=== PATIENT | female | born 1955 | race Caucasian/White ===

== ENCOUNTER 2021-01-26 07:31 | Inpatient (IN) | payer MEDICARE, SELFPAY ==
[2021-01-26] VITALS (17 sets, daily range): BP systolic 94–123; BP diastolic 64–83; PULSE 72–109; RESP 16–33; TEMP 36.6–38.5; O2SAT 91–98; BMI 34.3; BMI 36.7
--- NOTE | 2021-01-26 07:46 | W.ED.SOB ---
HPI - SOB/Dyspnea General: Chief Complaint: COVID symptoms Stated Complaint: LOW O2, LIMITED INTAKE:BROUGHT UP FROM INFUSION Time Seen by Provider: 01/26/21 07:32 History of Present Illness: HPI Narrative: Ms. Potts is a 64-year-old lady with significant past medical history of glaucoma, hypertension, COPD (possibly, patient vague but does report a smoking history) who presents emergency department from infusion clinic due to low oxygen saturation. She started having fairly typical Covid symptoms 5 or 6 days ago. She endorses generalized malaise, fevers, chills, aches, mild dizziness, shortness of breath, cough, and diarrhea which subsequently resolved as well as nausea. Symptoms began subacutely. Intensity of symptoms is moderate to severe. She tested positive for Covid at outside facility and was sent for infusion clinic however she was found to be hypoxemic. No history of home oxygen use. No other specific exacerbating or relieving factors identified. Review of Systems General: Reports: 10 or more systems reviewed and unremarkable except in HPI and below PFSH ED PFSH: Medical History (Updated 01/26/21 @ 13:37 by Abhijeet Qureshi MD) Hyperlipidemia Hypothyroidism Tobacco dependency Family History (Updated 01/26/21 @ 13:30 by Abhijeet Qureshi MD) Other Clotting disorder Social History (Updated 01/26/21 @ 13:30 by Abhijeet Qureshi MD) Smoking and tobacco status: current every day smoker Alcohol intake: never Physical Exam Narrative: EXAM NARRATIVE: GENERAL/CONSTITUTIONAL -mildly ill-appearing. No acute distress. Eyes - PERRL, no conjunctival injection ENMT - Atraumatic external nose and ears. Moist mucous membranes NECK - supple. trachea midline CARDIOVASCULAR - regular rate and rhythm. Peripheral pulses 2+ and equal RESPIRATORY -coarse to auscultation bilaterally. No retractions or accessory muscle use. ABDOMEN/GI - Nontender, Nondistended. No tenderness to percussion or evidence of peritonitis MSK - Extremities without obvious deformity or tenderness to palpation SKIN - Warm, Dry NEURO - alert and appropriately oriented. strength and sensation intact. Moves all extremities equally. PSYCH - Appropriate mood and affect Course ED course: - Patient was seen and evaluated by me at bedside - Patient placed on cardiac monitors, IV access obtained - Initial evaluation notable for mildly ill appearance, no acute distress. Decreased breath sounds and supplemental oxygen in place. - Labs notable for leukocytosis, mild thrombocytopenia. Metabolic panel notable for hypokalemia. CRP markedly elevated with markedly elevated procalcitonin. ABG normal. delta troponin negative -Patient describes intermittent neurologic symptoms and therefore head CT ordered. Head CT negative for acute intracranial hemorrhage or mass. Chest x-ray somewhat unimpressive given patient's clinical picture and laboratory findings. Therefore, CTA ordered. Imaging notable for likely bacterial pneumonia as well as pulmonary emboli. - At time of CT read patient had definitive source of infection on top of SIRS criteria. Antibiotics and fluids given. All fluid calculations based on ideal body weight. - Upon serial reexamination after treatment the patient was mildly improved - Based on patient history, evaluation, labs, and imaging as interpreted the most likely cause of the patient's condition is pneumonia with hypoxemia, Covid, and pulmonary emboli - The results of ED evaluation were discussed with the patient including plan for admission due to requirement for level of care not available if discharged to prevent significant worsening/deterioration. -Hospitalist service contacted and agreed to meet the patient. Lovenox ordered. - Patient was admitted without further deterioration or significant events. Vital Signs: Vital signs: Vital Signs Temperature 97.5 F L 01/27/21 15:22 Pulse Rate 68 01/27/21 15:33 Respiratory Rate 18 01/27/21 15:30 Blood Pressure 111/68 01/27/21 15:22 Pulse Oximetry 97 01/27/21 15:30 MDM - SOB/Dyspnea Medical Records: Attestation: I reviewed the patient's medical records. Lab Data: Attestation: I reviewed the patient's lab results. Labs: Lab Results 01/26/21 01/26/21 01/26/21 Range/Units 07:55 07:55 07:55 WBC 13.2 H (4.0-10.0) 10^3/ uL RBC 4.61 (4.1-5.3) 10^6/u L Hgb 14.1 (11.5-15.3) g/dL Hct 41.5 (37.0-47.0) % MCV 90.0 (81-99) fl MCH 30.6 (28.0-34.0) pg MCHC 34.0 (30.0-36.0) g/dL RDW 13.6 (12.1-15.1) % Plt Count 123 L (130-400) 10^3/c mm MPV 10.8 H (7.4-10.4) fL Neut % (Auto) 90.3 % Lymph % (Auto) 3.9 % Linn % (Auto) 4.2 % Eos % (Auto) 0.0 % Baso % (Auto) 0.2 % Neut # (Auto) 11.95 H (1.8-7.7) 10^3/u L Lymph # (Auto) 0.5 L (0.8-4.8) 10^3/u L Linn # (Auto) 0.6 (0.2-0.9) 10^3/u L Eos # (Auto) 0.0 (0.0-0.8) 10^3/u L Baso # (Auto) 0.0 (0.0-0.1) 10^3/u L Nucleated RBC % (a uto) 0 % Nucleated RBCs # 0.0 /100WBC Specimen Type Sample Site ABG pH (7.35-7.45) ABG pCO2 (35-45) mmHg ABG pO2 (80.0-100.0) mmH g ABG HCO3 (22-26) mmol/L ABG Base Excess (-2.0-2.0) mmol/ L Duran Test Hematocrit (37-47) % O2 Delivery Device O2 Liters/Min % FiO2 % Correspondence Representative ID Sodium 136 (136-145) mmol/L Potassium 3.2 L (3.5-5.1) mmol/L Chloride 100 (98-107) mmol/L Carbon Dioxide 20 L (22-29) mmol/L Anion Gap 19.2 H (5-19) BUN 24 H (8-23) mg/dL Creatinine 1.0 H (0.5-0.9) mg/dL GFR Calculation 55.6 L (90-130) mL/min Glucose 100 (65-115) mg/dL Calculated Osmolal ity 286 (285-295) mOsm/k g Lactic Acid 1.1 (0.5-2.2) mmol/L Calcium 7.7 L (8.5-10.5) mg/dL Magnesium (1.7-2.3) mg/dL Total Bilirubin 0.4 (0.15-1.2) mg/dL AST 30 (0-32) U/L ALT 29 (0-33) U/L Alkaline Phosphata se 59 (35-105) IU/L Troponin T Baselin e (0-10) ng/L Troponin T 120 Min [place] (0-10) ng/L Delta Troponin T (0-10) ABS# C-Reactive Protein 341.0 H (0.0-4.9) mg/L NT-Pro-B Natriuret Pep 169 H (0-125) pg/mL Total Protein 6.4 L (6.6-8.7) g/dL Albumin 3.5 (3.5-5.2) g/dL Globulin 2.9 (1.3-4.6) g/dL Procalcitonin 62.45 H (0-0.5) ng/mL Urine Color (Yellow) Urine Appearance (CLEAR) Urine pH (5-7) Ur Specific Gravit y (1.005-1.030) Urine Protein (Negative) Urine Glucose (UA) (Normal) Urine Ketones (Negative) Urine Blood (Negative) Urine Nitrate (Negative) Urine Bilirubin (Negative) Urine Urobilinogen (Negative) mg/dL Ur Leukocyte Delphine ase (Negative) Urine RBC (0-2) /hpf Urine WBC (0-5) /hpf Ur Squamous Epith Cells (0-5) /hpf Amorphous Sediment Urine Bacteria (NONE) /hpf 01/26/21 01/26/21 01/26/21 Range/Units 07:55 07:55 09:12 WBC (4.0-10.0) 10^3/ uL RBC (4.1-5.3) 10^6/u L Hgb (11.5-15.3) g/dL Hct (37.0-47.0) % MCV (81-99) fl MCH (28.0-34.0) pg MCHC (30.0-36.0) g/dL RDW (12.1-15.1) % Plt Count (130-400) 10^3/c mm MPV (7.4-10.4) fL Neut % (Auto) % Lymph % (Auto) % Linn % (Auto) % Eos % (Auto) % Baso % (Auto) % Neut # (Auto) (1.8-7.7) 10^3/u L Lymph # (Auto) (0.8-4.8) 10^3/u L Linn # (Auto) (0.2-0.9) 10^3/u L Eos # (Auto) (0.0-0.8) 10^3/u L Baso # (Auto) (0.0-0.1) 10^3/u L Nucleated RBC % (a uto) % Nucleated RBCs # /100WBC Specimen Type Arterial Sample Site Radial, left ABG pH 7.43 (7.35-7.45) ABG pCO2 34.7 L (35-45) mmHg ABG pO2 75.4 L (80.0-100.0) mmH g ABG HCO3 22.8 (22-26) mmol/L ABG Base Excess -1.1 (-2.0-2.0) mmol/ L Duran Test Pos Hematocrit 41.4 (37-47) % O2 Delivery Device Nc O2 Liters/Min 3.0 % FiO2 32.0 % Correspondence Representative ID Cak Sodium (136-145) mmol/L Potassium (3.5-5.1) mmol/L Chloride (98-107) mmol/L Carbon Dioxide (22-29) mmol/L Anion Gap (5-19) BUN (8-23) mg/dL Creatinine (0.5-0.9) mg/dL GFR Calculation (90-130) mL/min Glucose (65-115) mg/dL Calculated Osmolal ity (285-295) mOsm/k g Lactic Acid (0.5-2.2) mmol/L Calcium (8.5-10.5) mg/dL Magnesium 2.1 (1.7-2.3) mg/dL Total Bilirubin (0.15-1.2) mg/dL AST (0-32) U/L ALT (0-33) U/L Alkaline Phosphata se (35-105) IU/L Troponin T Baselin e 13 H (0-10) ng/L Troponin T 120 Min [place] (0-10) ng/L Delta Troponin T (0-10) ABS# C-Reactive Protein (0.0-4.9) mg/L NT-Pro-B Natriuret Pep (0-125) pg/mL Total Protein (6.6-8.7) g/dL Albumin (3.5-5.2) g/dL Globulin (1.3-4.6) g/dL Procalcitonin (0-0.5) ng/mL Urine Color (Yellow) Urine Appearance (CLEAR) Urine pH (5-7) Ur Specific Gravit y (1.005-1.030) Urine Protein (Negative) Urine Glucose (UA) (Normal) Urine Ketones (Negative) Urine Blood (Negative) Urine Nitrate (Negative) Urine Bilirubin (Negative) Urine Urobilinogen (Negative) mg/dL Ur Leukocyte Delphine ase (Negative) Urine RBC (0-2) /hpf Urine WBC (0-5) /hpf Ur Squamous Epith Cells (0-5) /hpf Amorphous Sediment Urine Bacteria (NONE) /hpf 01/26/21 01/26/21 Range/Units 09:26 10:00 WBC (4.0-10.0) 10^3/ uL RBC (4.1-5.3) 10^6/u L Hgb (11.5-15.3) g/dL Hct (37.0-47.0) % MCV (81-99) fl MCH (28.0-34.0) pg MCHC (30.0-36.0) g/dL RDW (12.1-15.1) % Plt Count (130-400) 10^3/c mm MPV (7.4-10.4) fL Neut % (Auto) % Lymph % (Auto) % Linn % (Auto) % Eos % (Auto) % Baso % (Auto) % Neut # (Auto) (1.8-7.7) 10^3/u L Lymph # (Auto) (0.8-4.8) 10^3/u L Linn # (Auto) (0.2-0.9) 10^3/u L Eos # (Auto) (0.0-0.8) 10^3/u L Baso # (Auto) (0.0-0.1) 10^3/u L Nucleated RBC % (a uto) % Nucleated RBCs # /100WBC Specimen Type Sample Site ABG pH (7.35-7.45) ABG pCO2 (35-45) mmHg ABG pO2 (80.0-100.0) mmH g ABG HCO3 (22-26) mmol/L ABG Base Excess (-2.0-2.0) mmol/ L Duran Test Hematocrit (37-47) % O2 Delivery Device O2 Liters/Min % FiO2 % Correspondence Representative ID Sodium (136-145) mmol/L Potassium (3.5-5.1) mmol/L Chloride (98-107) mmol/L Carbon Dioxide (22-29) mmol/L Anion Gap (5-19) BUN (8-23) mg/dL Creatinine (0.5-0.9) mg/dL GFR Calculation (90-130) mL/min Glucose (65-115) mg/dL Calculated Osmolal ity (285-295) mOsm/k g Lactic Acid (0.5-2.2) mmol/L Calcium (8.5-10.5) mg/dL Magnesium (1.7-2.3) mg/dL Total Bilirubin (0.15-1.2) mg/dL AST (0-32) U/L ALT (0-33) U/L Alkaline Phosphata se (35-105) IU/L Troponin T Baselin e (0-10) ng/L Troponin T 120 Min [place] 10.02 H (0-10) ng/L Delta Troponin T -2.98 L (0-10) ABS# C-Reactive Protein (0.0-4.9) mg/L NT-Pro-B Natriuret Pep (0-125) pg/mL Total Protein (6.6-8.7) g/dL Albumin (3.5-5.2) g/dL Globulin (1.3-4.6) g/dL Procalcitonin (0-0.5) ng/mL Urine Color Yellow (Yellow) Urine Appearance Clear (CLEAR) Urine pH 5 (5-7) Ur Specific Gravit y 1.020 (1.005-1.030) Urine Protein 1+ H (Negative) Urine Glucose (UA) Norm (Normal) Urine Ketones Negative (Negative) Urine Blood 3+ H (Negative) Urine Nitrate Negative (Negative) Urine Bilirubin 1+ H (Negative) Urine Urobilinogen Neg (Negative) mg/dL Ur Leukocyte Delphine ase Negative (Negative) Urine RBC 25-40 H (0-2) /hpf Urine WBC 0-4 H (0-5) /hpf Ur Squamous Epith Cells 0-4 H (0-5) /hpf Amorphous Sediment Not Reportable Urine Bacteria 2+ H (NONE) /hpf EKG Data^: EKG 1: Attestation: I personally reviewed and interpreted this EKG as follows: EKG Interpretation Date: 01/26/21 EKG interpretation time: 08:15 Interpretation: Twelve-lead EKG shows a regular sinus rhythm at a rate of 109. SD interval 148, QRS duration 97, QTc 4 6. Normal axis. Interpretation: Sinus tachycardia, nonspecific ST segment abnormalities EKG 2: Attestation: I personally reviewed and interpreted this EKG as follows: EKG Interpretation Date: 01/26/21 EKG interpretation time: 10:08 Prior EKG tracings: available for review Interpretation: Twelve-lead EKG shows a regular sinus rhythm at a rate of 87. SD interval 149, QRS duration 100, QTc 410. Normal axis. Interpretation: Sinus rhythm. Similar to prior. Discharge Plan Discharge Patient Disposition: Admitted As Inpatient Admit Provider: Abhijeet Qureshi Coding Level of Care Code ED Director Of Leadership Development for Christie Burton
--- NOTE | 2021-01-26 07:49 | XR_ITS ---
WS: [id number] XR chest 1V portable [id number] REASON FOR EXAM: hypoxemia FINDINGS: Mild tortuosity thoracic aorta. Normal heart size. Patchy infiltrative change in the left lung just inferior and lateral to the aortic arch. The right hilar region appears enlarged and of increased density and has a very nodular appearance. Bony thorax is intact. XR/XR chest 1V portable [id number] IMPRESSION: Infiltrate left lung, unknown chronicity possibly an acute pneumonitis. Very unusual appearance of the right hilar region, etiology is unclear. In this single AP view this could represent a pulmonary parenchymal abnormality overly ing the hilar region. This patient may benefit from a CT scan of the chest for better evaluation of t he pulmonary abnormalities that are seen.
--- NOTE | 2021-01-26 07:50 | ECG_ITS ---
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 Measurements Intervals [place] Rate: 109 P: 61 CO: 148 QRS: 68 QRSD: 97 T: -17 QT: 301 QTc: 406 Interpretive Statements SINUS TACHYCARDIA NONSPECIFIC ST & T-WAVE ABNORMALITY Compared to ECG 10/06/2014 11:51:25 Sinus rhythm no longer present T-wave abnormality still present Electronically Signed On 01-27-2021 18:54:46 CDT by Kassandra South M.D. [id number]
[2021-01-26 08:05] LABS: Basophils % 0.2 %; Hematocrit 41.5 % (37.0-47.0); Hemoglobin 14.1 g/dL (11.5-15.3); Lymphocytes # 0.5 10^3/uL (0.8-4.8); Lymphocytes % 3.9 %; Mean Corpuscular Hemoglobin 30.6 pg (28.0-34.0); Mean Platelet Volume 10.8 fL (7.4-10.4); Monocytes # 0.6 10^3/uL (0.2-0.9); Monocytes % 4.2 %; Neutrophils # 11.95 10^3/uL (1.8-7.7); Neutrophils % 90.3 %; Nucleated Red Blood Cells % 0 %; Platelet Count 123 10^3/cmm (130-400); Red Blood Count 4.61 10^6/uL (4.1-5.3); Red Cell Distribution Width 13.6 % (12.1-15.1); White Blood Count 13.2 10^3/uL (4.0-10.0)
[2021-01-26 08:34] LABS: Lactic Sepsis W/Reflex 1.1 mmol/L (0.5-2.2)
--- NOTE | 2021-01-26 08:36 | CT_ITS ---
WS: [id number] CT HEAD NONCONTRAST HISTORY: AMS, dizziness TECHNIQUE: Contiguous axial imaging performed through the brain in 2.5 mm imaging. Bone and soft tiss ue windows. Sagittal and coronal reformats reviewed. All CT scans at [facility] [place] use at least one of these dose optimization techniques: automated exposure control; mA and/or kV adjustment per pa tient size (includes targeted exams where dose is matched to clinical indication); or iterative recon struction. DLP: 841.49 mGy.cm COMPARISON: None available. No acute intracranial hemorrhage, midline shift or mass effect. No atrophy or prior infarcts or herniation. Ventricles: Normal size with no hydrocephalus. Moderate atherosclerotic plaque within the intracranial carotid arteries. Paranasal sinuses: As visualized are clear. Mastoid air cells: Well pneumatized. Calvarium and scalp: Skull is intact with no soft tissue edema or swelling. CT/CT head wo con* [id number] IMPRESSION: Negative head CT.
[2021-01-26 08:37] LABS: Troponin(5th) Baseline 13 ng/L (0-10)
[2021-01-26 08:45] LABS: Slide Review Slide Review Perform
[2021-01-26 08:46] LABS: NT Pro B Type Natriuretic Pept 169 pg/mL (0-125); Procalcitonin 62.45 ng/mL (0-0.5)
--- NOTE | 2021-01-26 08:48 | CT_ITS ---
WS: [id number] CTA CHEST WITH CT ABDOMEN AND PELVIS. HISTORY: Epigastric pain and short of breath. Covid positive. TECHNIQUE: CT angiogram is performed through the chest. Additional imaging is performed through the a bdomen and pelvis with IV contrast. Sagittal and coronal reformats have been submitted. MIP imaging also reviewed. All CT scans at [facility] use at least one of these dose optimization techniqu es: automated exposure control; mA and/or kV adjustment per patient size (includes targeted exams whe re dose is matched to clinical indication); or iterative reconstruction. Contrast: Visipaque 95 cc IV. DLP: 1772.65 mGy.cm COMPARISON: None. Chest CTA: Adequate opacification of the central pulmonary arteries. Centrally no pulmonary embolism. There are filling defects beginning in the subsegmental branches of the RIGHT lower lobe pulmonary a rtery. Incomplete filling defect in LEFT lower lobe pulmonary artery. These are nonocclusive defects. No RIGHT heart strain. Normal size RIGHT heart. No LEFT atrial appendage thrombus. Normal-sized thor acic aorta. Bilateral areas of dense consolidation in the hilar regions. Consolidations are in the me dial upper lung montague bilaterally extending over the hilar regions. Crease opacification at the marcos r regions and extending into the azygos esophageal recess. Mild interstitial thickening in the periph nuno of the lower lung montague. No pneumothorax. There are numerous small mediastinal and hilar lymph n odes. No enlarged lymph nodes. Probably reactive adenopathy. Abdomen CT: Mildly enlarged liver with no bile duct dilatation. Normal portal vein. Gallbladder has b een removed. Spleen is normal size. Normal pancreas. No adrenal mass. Mild atherosclerosis aorta. 1.7 cm cyst associated with the central RIGHT kidney. No renal obstruction. No adenopathy or ascites. No GI tract obstruction. Numerous diverticula in the descending and sigmoid colon. The appendix is not identified and may been removed. Pelvic CT: No free fluid in the pelvis. Prior hysterectomy. CT/CT angio chest w abd pel w con IMPRESSION: 1. Nonocclusive bilateral, subsegmental pulmonary emboli lung montague. 2. Bilateral multi lobar pneumonia. Atypical distribution for Covid. The opaci fications are in the central lungs and not in the periphery is typically seen w ith Covid. Recommend follow-up until resolution. 3. Sigmoid diverticulosis but no acute diverticulitis. 4. Gallbladder is not identified. Suspect cholecystectomy. Appendix is not benita ntified either. No history of appendectomy was provided. Notified Juan Rae MD at 01/26/2021 10:46 AM. Not available.
[2021-01-26] MEDS: lactated ringers 500 ML 999 ML IV (08:49)
[2021-01-26] MEDS: ondansetron 2 mg/ML SDV 2 mL 4 MG IVP (08:51)
[2021-01-26] MEDS: acetaminophen 325 mg Tablet 650 MG PO ×2 (08:51→15:52)
[2021-01-26] MEDS: piperacillin-tazobactam 4.5 GM in sodium chloride 0.9% (plus) 50 ML IV (08:54)
[2021-01-26 08:58] LABS: Alanine Aminotransferase 29 U/L (0-33); Albumin Level 3.5 g/dL (3.5-5.2); Alkaline Phosphatase 59 IU/L (35-105); Anion Gap 19.2 (5-19); Aspartate Amino Transferase 30 U/L (0-32); Blood Urea Nitrogen 24 mg/dL (8-23); Calcium 7.7 mg/dL (8.5-10.5); Carbon Dioxide 20 mmol/L (22-29); Chloride 100 mmol/L (98-107); Globulin 2.9 g/dL (1.3-4.6); Glomerular Filtration Rate 55.6 mL/min (90-130); Glucose 100 mg/dL (65-115); Osmolality Calculated 286 mOsm/kg (285-295); Potassium 3.2 mmol/L (3.5-5.1); Sodium 136 mmol/L (136-145); Total Bilirubin 0.4 mg/dL (0.15-1.2); Total Protein 6.4 g/dL (6.6-8.7)
[2021-01-26 09:23] LABS: ABG PCO2 34.7 mmHg (35-45); ABG PH Result 7.43 (7.35-7.45); Arterial Blood Gas Hematocrit 41.4 % (37-47); Base Excess ABG -1.1 mmol/L (-2.0-2.0); Blood Gas Allen Test Pos; Blood Gas Operator Identificat CAK; Blood Gas Sample Site Radial, left; Blood Gas Sample Type Arterial; HCO3 ABG 22.8 mmol/L (22-26); Oxygen Device NC; PO2 ABG 75.4 mmHg (80.0-100.0)
[2021-01-26] MEDS: potassium chloride ER 20 mEq Tablet 40 MEQ PO (09:35)
--- NOTE | 2021-01-26 09:50 | ECG_ITS ---
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 Measurements Intervals [place] Rate: 87 P: 60 IL: 149 QRS: 67 QRSD: 100 T: 39 QT: 340 QTc: 410 Interpretive Statements SINUS RHYTHM NONSPECIFIC T-WAVE ABNORMALITY Compared to ECG 01/26/2021 08:11:11 Sinus tachycardia no longer present T-wave abnormality still present Electronically Signed On 01-27-2021 19:21:19 CDT by Kassandra South M.D. [id number]
[2021-01-26 10:11] LABS: Add Urine Microscopic? YES; Bilirubin Urine 1+ (Negative); Blood Urine 3+ (Negative); Glucose Urine UA Norm (Normal); Ketones Urine Negative (Negative); Leukocyte Esterase Urine Negative (Negative); Nitrate Urine Negative (Negative); Protein Urine 1+ (Negative); Urine Appearance Clear (CLEAR); Urine Color Yellow (Yellow); Urobilinogen Urine Neg (Negative); pH Urine 5 (5-7)
[2021-01-26 10:12] LABS: Add Urine Culture? Yes; Bacteria Urine 2+ /hpf; RBC Urine 25-40 /hpf (0-2); Squamous Epithelial Cell Urine 0-4 /hpf (0-5); WBC Urine 0-4 /hpf (0-5)
[2021-01-26] MEDS: iodixanol 320 mg/mL 100mL Btl IV (10:27)
[2021-01-26 10:40] LABS: Troponin 5 2HR 10.02 ng/L (0-10)
[2021-01-26 10:48] LABS: Troponin 5 2HR Delta -2.98 ABS# (0-10)
[2021-01-26] MEDS: ipratropium-albuterol 3 mL Neb INHALATION (11:26)
[2021-01-26] MEDS: enoxaparin 100 mg/mL Syringe 90 MG SUBCUT (11:33)
--- NOTE | 2021-01-26 13:24 | P.HP_ITS ---
Providers/Chief Complaint Admitting Physician: Abhijeet Qureshi MD Primary Care Provider: Danielle Jacome MD Chief Complaint: LOW O2, LIMITED INTAKE:BROUGHT UP FROM INFUSION History of Present Illness Angely Potts is a 65 year old female who presented with fever, cough, nausea and diarrhea for the last week. She presented to her primary care provider's office and had a positive Covid test which I confirmed was done on January 24. She states the diarrhea has gotten better but she just cannot breathe. She feels like she needs to cough something up but cannot. She has been wheezing. She has not been eating or drinking as well. I believe she was sent for monoclonal infus ion, but did not receive this secondary hypoxia and was sent to the emergency department. She has also had some pain when she takes a deep breath on the left side. She has not had hemoptysis. In the emergency department she was placed on oxygen, hydrated, and given Zosyn and vancomycin. Multiple imaging studies were performed. Review of Systems General: Reports: 10 or more systems reviewed and unremarkable except in HPI and below Const: Reports: fever(s), chills and malaise Eyes: Denies: change in vision ENMT: Denies: throat pain Card: Reports: chest pain Resp: Reports: dyspnea, non-productive cough and wheezing GI: Reports: abdominal pain; Denies: nausea : Denies: flank pain Musc: Denies: neck pain Skin/Breast: Denies: rash Neuro: Denies: headache(s) Psych: Denies: anxiety or depression Endo: Denies: polyuria Valdo/Lymph: Denies: easy bruising All/Imm: Denies: urticaria Medications/Allergies Home Medications Medication Instructions Recorded Confirmed Last Taken Type azithromycin 250 mg PO DAILY 01/26/21 01/26/21 01/25/21 History budesonide See Rx Instructions .ROUTE .COMPLEX 01/26/21 01/26/21 01/25/21 History levothyroxine 75 mcg PO DAILY 01/26/21 01/26/21 01/25/21 History simvastatin 40 mg PO DAILY 01/26/21 01/26/21 01/25/21 History timolol maleate See Rx Instructions .ROUTE .COMPLEX 01/26/21 01/26/21 01/25/21 History Allergies Allergy/AdvReac Type Severity Reaction Status Date / Time ibuprofen Allergy ADR-Vomitin Verified 01/26/21 07:51 g PFSH Acute PFSH: Medical History (Updated 01/26/21 @ 13:37 by Abhijeet Qureshi MD) Hyperlipidemia Hypothyroidism Tobacco dependency Family History (Updated 01/26/21 @ 13:30 by Abhijeet Qureshi MD) Other Clotting disorder Social History (Updated 01/26/21 @ 13:30 by Abhijeet Qureshi MD) Smoking and tobacco status: current every day smoker Alcohol intake: never Supplemental PFSH Information: Denies any significant surgical history. Vitals/I&O/Wt Last Vital Signs Temp 98.4 F 01/26/21 13:08 Pulse 85 01/26/21 13:08 Resp 19 H 01/26/21 13:08 BP 102/66 01/26/21 13:08 Pulse Ox 98 01/26/21 13:08 01/25/21 01/26/21 01/26/21 22:59 06:59 14:59 Intake Total 1691 / 1691 Balance 1691 / 1691 Weight last 48 hrs Weight 97.069 kg Weight 90.718 kg Physical Exam Narrative: EXAM NARRATIVE: General exam tired appearing female HEENT: Pupils equally round. Oropharynx clear. Neck is supple no lymphadenopathy thyromegaly Cardiovascular regular rate and rhythm without murmur Lungs bilateral expiratory wheezes, rhonchi are noted bilaterally Abdomen is soft with positive bowel sounds, no obvious organomegaly. No pain to palpation. exam is deferred Extremities no cyanosis clubbing or edema Skin no rash Neuro no obvious focal deficits. Data : 01/26/21 07:55 01/26/21 07:55 Micro: Microbiology 01/26/21 10:00 Blood Culture - Preliminary Blood SPECIMEN COLLECTED 01/26/21 09:55 Blood Culture - Preliminary Blood SPECIMEN COLLECTED Other data: ABG demonstrates a pH of 7.43, PCO2 of 35, PO2 of 75 Troponin is 13 with repeat of 10 LFTs largely within normal limits Procalcitonin elevated at 62 Urinalysis with 25-40 reds 0-4 whites Chest abdomen pelvis CT demonstrates nonocclusive bilateral pulmonary emboli, bilateral multilobar pneumonia, diverticulosis. Head CT no acute findings Plain chest x-ray demonstrated infiltrate left lung EKG demonstrates sinus rhythm, normal axis, no acute changes. A&P Assessment and plan (1) COVID-19: Tested + January 24. From patient history symptoms were going on a week to a week and a half. Initiate remdesivir Initiate dexamethasone Not candidate for Actemra/ baricitinib secondary to superimposed bacterial infection Isolation precautions Status: Acute (2) Pneumonia: Likely superimposed bacterial infection Atypical appearance of infiltrate on chest x-ray for Covid. Vancomycin and Zosyn initiated through the emergency department Sputum culture MRSA PCR De-escalate antibiotics as soon as possible Wean oxygen as tolerated Pulmonary toilet with Combivent, Advair Incentive spirometry Status: Acute (3) Pulmonary emboli: Full dose anticoagulation with Lovenox Transition to p.o. anticoagulant, if clinical improvement occurs and other procedures unlikely Status: Acute (4) Hypokalemia: Potassium supplementation occurred in the ER Check magnesium level Status: Acute Additional A&P Information Full code Full dose Lovenox will suffice for DVT prophylaxis. Pepcid for GI prophylaxis Attestations Medical Necessity Statement*: Will need greater than 2 midnight stay secondary to COVID-19 pneumonia with hypoxia Time Spent in Patient Care: Greater than 35 minutes Coding Level of Care Code Acute Broadcast Program Director for Christie Burton Diagnoses COVID-19 U07.1 Pneumonia J18.9 Pulmonary emboli I26.99 Hypokalemia E87.6
[2021-01-26 14:06] LABS: Magnesium 2.1 mg/dL (1.7-2.3)
[2021-01-26] MEDS: dexamethasone 10 mg/mL INJ 6 MG IVP (14:45)
[2021-01-26] MEDS: remdesivir 200 MG in sodium chloride 0.9% (100 ml) 100 ML 100 MG IV (14:45)
[2021-01-26] MEDS: piperacillin-tazobactam 3.375 GM in sodium chloride 0.9% (plus) 50 ML IV ×2 (15:51→22:48)
[2021-01-26] MEDS: famotidine 20 mg Tablet PO (18:27)
[2021-01-26] MEDS: enoxaparin 100 mg/mL Syringe SUBCUT (22:53)
[2021-01-27] VITALS (14 sets, daily range): BP systolic 105–119; BP diastolic 63–79; PULSE 61–82; RESP 17–20; TEMP 36.4–36.8; O2SAT 91–97
[2021-01-27] MEDS: vancomycin 1,500 MG/300 ML PIGGYBACK 200 MG IV (00:07)
[2021-01-27 02:56] LABS: Basophils % 0.2 %; Hematocrit 37.3 % (37.0-47.0); Hemoglobin 11.8 g/dL (11.5-15.3); Lymphocytes # 0.5 10^3/uL (0.8-4.8); Mean Corpuscular HGB Conc 31.6 g/dL (30.0-36.0); Mean Corpuscular Volume 94.9 fl (81-99); Mean Platelet Volume 11.4 fL (7.4-10.4); Monocytes # 0.6 10^3/uL (0.2-0.9); Neutrophils # 8.01 10^3/uL (1.8-7.7); Nucleated Red Blood Cells % 0 %; Platelet Count 130 10^3/cmm (130-400); Red Blood Count 3.93 10^6/uL (4.1-5.3); Red Cell Distribution Width 13.9 % (12.1-15.1); White Blood Count 9.1 10^3/uL (4.0-10.0)
[2021-01-27 03:19] LABS: Slide Review Slide Review Perform
[2021-01-27 03:23] LABS: Alanine Aminotransferase 21 U/L (0-33); Albumin Level 2.6 g/dL (3.5-5.2); Alkaline Phosphatase 48 IU/L (35-105); Aspartate Amino Transferase 15 U/L (0-32); Blood Urea Nitrogen 20 mg/dL (8-23); Calcium 7.2 mg/dL (8.5-10.5); Carbon Dioxide 23 mmol/L (22-29); Chloride 104 mmol/L (98-107); Globulin 2.7 g/dL (1.3-4.6); Glucose 110 mg/dL (65-115); Osmolality Calculated 287 mOsm/kg (285-295); Sodium 137 mmol/L (136-145); Thyroid Stimulating Hormone 1.06 uIU/mL (0.27-4.20); Total Bilirubin 0.2 mg/dL (0.15-1.2); Total Protein 5.3 g/dL (6.6-8.7)
[2021-01-27] MEDS: piperacillin-tazobactam 3.375 GM in sodium chloride 0.9% (plus) 50 ML IV ×3 (06:02→22:17)
--- NOTE | 2021-01-27 06:32 | PC.NURSE ---
Patient rested throughout night. No new events or changes. VSS, remains on nasal cannula. Spoke with daughter at beginning of shift with update. No needs at this time. Report and handoff to oncoming nurse at shift change.
[2021-01-27] MEDS: famotidine 20 mg Tablet PO ×2 (08:54→17:26)
[2021-01-27] MEDS: benzonatate 100 mg Capsule PO ×2 (08:54→14:18)
[2021-01-27] MEDS: enoxaparin 100 mg/mL Syringe SUBCUT ×2 (12:16→22:17)
--- NOTE | 2021-01-27 12:21 | P.PN_ITS ---
Subjective Subjective: Interval history: Angely reports she feels about the same today. Still coughing a lot. Medications: Reviewed: Yes Vitals/I&O/Wt Last Vital Signs Temp 97.9 F 01/27/21 11:05 Pulse 73 01/27/21 11:05 Resp 18 01/27/21 11:05 BP 110/63 01/27/21 11:05 Pulse Ox 91 01/27/21 11:05 01/26/21 01/27/21 01/27/21 22:59 06:59 14:59 Intake Total 390 / 2581 590 / 3171 170 / 170 Balance 390 / 2581 590 / 3171 170 / 170 Weight last 48 hrs Weight 97.069 kg Weight 90.718 kg Physical Exam Narrative: EXAM NARRATIVE: T-max 101.3 general exam no distress Neck is supple no lymphadenopathy thyromegaly Cardiovascular regular rate and rhythm without murmur Lungs bilateral expiratory wheezes, rhonchi are noted bilaterally Abdomen is soft with positive bowel sounds, no obvious organomegaly. No pain to palpation. Extremities no cyanosis clubbing or edema Data : 01/27/21 02:26 01/27/21 02:26 Micro: Microbiology 01/26/21 15:58 MRSA Culture - Final Nose 01/26/21 09:55 Blood Culture - Preliminary Blood NEGATIVE TO DATE 01/26/21 10:00 Blood Culture - Preliminary Blood NEGATIVE TO DATE 01/26/21 09:26 Urine Culture - Preliminary Urine,Clean Catch Gram Negative Rods A&P Assessment and plan (1) COVID-19: Tested + January 24. From patient history symptoms were going on a week to a week and a half. Continue remdesivir and dexamethasone Not candidate for Actemra/ baricitinib secondary to superimposed bacterial infection Isolation precautions Status: Acute (2) Pneumonia: Likely superimposed bacterial infection Atypical appearance of infiltrate on chest x-ray for Covid. Procalcitonin is positive Vancomycin and Zosyn initiated through the emergency department Sputum culture pending MRSA negative. Discontinue vancomycin. De-escalate antibiotics as soon as possible Wean oxygen as tolerated Pulmonary toilet with Combivent, Advair Incentive spirometry Status: Acute (3) Pulmonary emboli: Full dose anticoagulation with Lovenox Transition to p.o. anticoagulant, if clinical improvement occurs and other procedures unlikely Status: Acute (4) Hypokalemia: Potassium supplementation occurred in the ER Check magnesium level Status: Acute Additional A&P Information Possible UTI. Urine growing gram-negative rods. Await culture and sensitivity. Full code Full dose Lovenox will suffice for DVT prophylaxis. Pepcid for GI prophylaxis Attestations Medical Necessity Statement*: Need hospital stay for IV antibiotics related to pneumonia as well as treatment of Covid. Coding Level of Care Code Acute Welder Gas Automatic for [facility] Diagnoses COVID-19 U07.1 Pneumonia J18.9 Pulmonary emboli I26.99 Hypokalemia E87.6
[2021-01-27] MEDS: dexamethasone 10 mg/mL INJ 6 MG IVP (14:18)
[2021-01-27] MEDS: levothyroxine 75 mcg Tablet PO (14:18)
[2021-01-27] MEDS: atorvastatin 40 mg Tablet 20 MG PO (14:18)
--- NOTE | 2021-01-27 15:36 | PC.CHAP ---
Pastoral Care Encounter/Spiritual Assessment Type of Contact [] Declined barrel drum cutter visit [] Patient/Family/Request visit [] Outpatient visit [] Follow-up visit [] Physician referral [] Code/Alert [] Routine visit [] Staff referral [] Actively dying [] Patient sleeping [] Family support [] [] Out of room [] Palliative care [] [] Receiving care in room [] Pre-surgical visit [] Trauma [] Long length of stay [] ICU visit [xx] Other: Patient in isolation Relational/Emotional Strength [] Patient feels connected with others/family/visitors/staff [] Distress [] Loneliness/isolation [] Abandonment Spirituality of Patient [] Person of Margarita [] Attends Yarsanism of their Margarita [] Believes in Prayer [] Reads Bible or Mormonism materials [] There are Spiritual issues to be addressed Control Clerk Repairs Interventions [] Prayer [] Active listening [] Non-anxious presence [] Spiritual/emotional support [] Crisis/trauma care [] Spiritual counseling [] Bereavement support [] Provided bereavement packet [] Provided Bible/devotional materials [] Provided toy/stuffed animal, coloring book to patient or family member [] Provided Communion [] Anointing/[place] [] Salvation [] Completed spiritual assessment [] Other: Impact on Illness or Injury [] Angry [] Fearful [] Anxious [] Often cries [] Exhaustion [] Unable to work [] Unable to attend mu-ism [] Unable to walk/stand [] Unable to read [] Unable to drive [] Unable to eat/drink [] Unable to sleep [] Unable to be with family [] Patient intubated [] Other: Summary Time spent with patient
[2021-01-27] MEDS: remdesivir 100 MG in sodium chloride 0.9% (100 ml) 100 ML IV (17:26)
[2021-01-27] MEDS: timolol 0.5% Op Soln 5 mL Btl 1 DROP EYE-BOTH (17:51)
[2021-01-28] VITALS (13 sets, daily range): BP systolic 112–163; BP diastolic 72–87; PULSE 56–79; RESP 16–24; TEMP 36.4–36.8; O2SAT 91–97
[2021-01-28 05:43] LABS: Basophils % 0.1 %; Hematocrit 38.4 % (37.0-47.0); Hemoglobin 12.2 g/dL (11.5-15.3); Lymphocytes # 0.8 10^3/uL (0.8-4.8); Lymphocytes % 10.9 %; Mean Corpuscular HGB Conc 31.8 g/dL (30.0-36.0); Mean Corpuscular Hemoglobin 29.8 pg (28.0-34.0); Mean Corpuscular Volume 93.7 fl (81-99); Mean Platelet Volume 10.9 fL (7.4-10.4); Monocytes # 0.7 10^3/uL (0.2-0.9); Monocytes % 10.5 %; Neutrophils # 5.44 10^3/uL (1.8-7.7); Neutrophils % 77.4 %; Nucleated Red Blood Cells % 0 %; Platelet Count 165 10^3/cmm (130-400); Red Cell Distribution Width 13.9 % (12.1-15.1)
[2021-01-28] MEDS: piperacillin-tazobactam 3.375 GM in sodium chloride 0.9% (plus) 50 ML IV ×3 (05:47→22:31)
[2021-01-28 06:05] LABS: Alanine Aminotransferase 23 U/L (0-33); Albumin Level 2.9 g/dL (3.5-5.2); Alkaline Phosphatase 77 IU/L (35-105); Anion Gap 14.8 (5-19); Aspartate Amino Transferase 28 U/L (0-32); Blood Urea Nitrogen 26 mg/dL (8-23); Calcium 8.1 mg/dL (8.5-10.5); Carbon Dioxide 23 mmol/L (22-29); Chloride 106 mmol/L (98-107); Globulin 2.9 g/dL (1.3-4.6); Glomerular Filtration Rate 62.8 mL/min (90-130); Glucose 111 mg/dL (65-115); Osmolality Calculated 295 mOsm/kg (285-295); Potassium 3.8 mmol/L (3.5-5.1); Sodium 140 mmol/L (136-145); Total Bilirubin 0.2 mg/dL (0.15-1.2); Total Protein 5.8 g/dL (6.6-8.7)
[2021-01-28] MEDS: levothyroxine 75 mcg Tablet PO (09:01)
[2021-01-28] MEDS: timolol 0.5% Op Soln 5 mL Btl 1 DROP EYE-BOTH ×2 (09:01→17:12)
[2021-01-28] MEDS: famotidine 20 mg Tablet PO ×2 (09:01→17:12)
[2021-01-28] MEDS: atorvastatin 40 mg Tablet 20 MG PO (09:01)
[2021-01-28] MEDS: enoxaparin 100 mg/mL Syringe SUBCUT ×2 (12:37→22:31)
[2021-01-28] MEDS: dexamethasone 10 mg/mL INJ 6 MG IVP (12:37)
[2021-01-28] MEDS: remdesivir 100 MG in sodium chloride 0.9% (100 ml) 100 ML IV (17:12)
--- NOTE | 2021-01-28 18:32 | P.PN_ITS ---
Subjective Subjective: Interval history: Stable, sleeping at the time of my eval On 2L via NC No fever or chills. Medications: Reviewed: Yes Vitals/I&O/Wt Last Vital Signs Temp 97.8 F 01/28/21 16:00 Pulse 79 01/28/21 17:37 Resp 20 H 01/28/21 17:37 BP 163/87 01/28/21 16:00 Pulse Ox 91 01/28/21 17:37 01/28/21 01/28/21 01/28/21 06:59 14:59 22:59 Intake Total 110 / 430 290 / 290 100 / 390 Balance 110 / 80 290 / 290 100 / 390 Physical Exam Narrative: EXAM NARRATIVE: general exam no distress on 2L via NC Neck is supple no lymphadenopathy thyromegaly Cardiovascular regular rate and rhythm without murmur Lungs bilateral expiratory wheezes, rhonchi are noted bilaterally Abdomen is soft with positive bowel sounds, no obvious organomegaly. No pain to palpation. Extremities no cyanosis clubbing or edema Data : 01/28/21 05:03 01/28/21 05:03 Micro: Microbiology 01/27/21 14:08 Gram Stain - Final Sputum - Expectorated Sputum Sputum Culture - Preliminary 01/26/21 09:26 Urine Culture - Final Urine,Clean Catch Klebsiella pneumoniae A&P Assessment and plan (1) COVID-19: Tested + January 24. From patient history symptoms were going on a week to a week and a half. Continue remdesivir and dexamethasone Not candidate for Actemra/ baricitinib secondary to superimposed bacterial infection Isolation precautions Continue current management Status: Acute (2) Pneumonia: Likely superimposed bacterial infection Atypical appearance of infiltrate on chest x-ray for Covid. Procalcitonin is positive Vancomycin and Zosyn initiated through the emergency department Sputum culture - pending MRSA negative. Currently off vancomycin. De-escalate antibiotics as soon as possible Wean oxygen as tolerated Pulmonary toilet with Combivent, Advair Incentive spirometry Status: Acute (3) Pulmonary emboli: Full dose anticoagulation with Lovenox Transition to p.o. anticoagulant, if clinical improvement occurs and other procedures unlikely Likley transition in am Status: Acute (4) Hypokalemia: Potassium supplementation occurred in the ER Repeat labs in am Status: Acute Additional A&P Information Possible UTI. Urine growing gram-negative rods. Await culture and sensitivity. Full code Full dose Lovenox will suffice for DVT prophylaxis. Pepcid for GI prophylaxis Attestations Medical Necessity Statement*: Will continue current management for covid-19 plus superimposed bacterial pneuonia Time Spent in Patient Care: Greater than 35 minutes (>than 50% of time spent in counselling and/or direct pt care on unit) . Coding Level of Care Code Acute Skin Lifter Bacon for [facility] Fwd Diagnoses COVID-19 U07.1 Pneumonia J18.9 Pulmonary emboli I26.99 Hypokalemia E87.6
[2021-01-29] VITALS (13 sets, daily range): BP systolic 145–162; BP diastolic 76–96; PULSE 52–85; RESP 16–20; TEMP 36.3–36.9; O2SAT 93–97
[2021-01-29] MEDS: piperacillin-tazobactam 3.375 GM in sodium chloride 0.9% (plus) 50 ML IV ×3 (05:50→22:56)
[2021-01-29 05:54] LABS: Hematocrit 38.3 % (37.0-47.0); Hemoglobin 12.2 g/dL (11.5-15.3); Lymphocytes # 0.8 10^3/uL (0.8-4.8); Lymphocytes % 11.8 %; Mean Corpuscular HGB Conc 31.9 g/dL (30.0-36.0); Mean Corpuscular Hemoglobin 30.1 pg (28.0-34.0); Mean Corpuscular Volume 94.6 fl (81-99); Mean Platelet Volume 10.7 fL (7.4-10.4); Monocytes # 0.7 10^3/uL (0.2-0.9); Monocytes % 10.9 %; Neutrophils # 4.95 10^3/uL (1.8-7.7); Neutrophils % 74.9 %; Nucleated Red Blood Cells % 0 %; Platelet Count 184 10^3/cmm (130-400); Red Blood Count 4.05 10^6/uL (4.1-5.3); Red Cell Distribution Width 13.8 % (12.1-15.1); White Blood Count 6.6 10^3/uL (4.0-10.0)
[2021-01-29 06:29] LABS: Alanine Aminotransferase 21 U/L (0-33); Albumin Level 2.6 g/dL (3.5-5.2); Alkaline Phosphatase 43 IU/L (35-105); Anion Gap 14.8 (5-19); Aspartate Amino Transferase 27 U/L (0-32); Blood Urea Nitrogen 27 mg/dL (8-23); Calcium 7.8 mg/dL (8.5-10.5); Carbon Dioxide 23 mmol/L (22-29); Chloride 109 mmol/L (98-107); Globulin 2.6 g/dL (1.3-4.6); Glomerular Filtration Rate 62.8 mL/min (90-130); Glucose 108 mg/dL (65-115); Magnesium 2.4 mg/dL (1.7-2.3); Osmolality Calculated 302 mOsm/kg (285-295); Potassium 3.8 mmol/L (3.5-5.1); Sodium 143 mmol/L (136-145); Total Bilirubin 0.2 mg/dL (0.15-1.2); Total Protein 5.2 g/dL (6.6-8.7)
--- NOTE | 2021-01-29 08:37 | PC.RESP ---
Pt does not tolerate inhaler very well, may need nebulizer.
[2021-01-29] MEDS: levothyroxine 75 mcg Tablet PO (08:48)
[2021-01-29] MEDS: timolol 0.5% Op Soln 5 mL Btl 1 DROP EYE-BOTH ×2 (08:49→17:15)
--- NOTE | 2021-01-29 10:09 | PC.CHAP ---
Pastoral Care Encounter/Spiritual Assessment Type of Contact [] Declined general agent visit [] Patient/Family/Request visit [] Outpatient visit [] Follow-up visit [] Physician referral [] Code/Alert [x] Routine visit [] Staff referral [] Actively dying [] Patient sleeping [] Family support [] [] Out of room [] Palliative care [] [] Receiving care in room [] Pre-surgical visit [] Trauma [] Long length of stay [] ICU visit [] Other: Relational/Emotional Strength [x] Patient feels connected with others/family/visitors/staff [] Distress [] Loneliness/isolation [] Abandonment Spirituality of Patient [x] Person of Margarita [] Attends Gnosticist of their Margarita [x] Believes in Prayer [] Reads Bible or Orthodoxy materials [] There are Spiritual issues to be addressed Technical Operations Specialist Interventions [x] Prayer [x] Active listening [x] Non-anxious presence [x] Spiritual/emotional support [] Crisis/trauma care [] Spiritual counseling [] Bereavement support [] Provided bereavement packet [] Provided Bible/devotional materials [] Provided toy/stuffed animal, coloring book to patient or family member [] Provided Communion [] Anointing/[place] [] Salvation [x] Completed spiritual assessment [] Other: Impact on Illness or Injury [] Angry [] Fearful [] Anxious [] Often cries [] Exhaustion [] Unable to work [] Unable to attend pentecostalism [] Unable to walk/stand [] Unable to read [] Unable to drive [] Unable to eat/drink [] Unable to sleep [] Unable to be with family [] Patient intubated [] Other: Summary Technical Operations Specialist prayed with Patient and gave a Daily Bread. Time spent with patient 10 minutes.
--- NOTE | 2021-01-29 10:48 | PC.SOCIAL ---
IMM update IMM Updated with patient's daughter. Verbalized an understanding. Initialled, dated, timed, and placed in chart.
[2021-01-29] MEDS: enoxaparin 100 mg/mL Syringe SUBCUT ×2 (11:34→22:56)
[2021-01-29] MEDS: dexamethasone 10 mg/mL INJ 6 MG IVP (15:00)
[2021-01-29] MEDS: remdesivir 100 MG in sodium chloride 0.9% (100 ml) 100 ML IV (17:14)
--- NOTE | 2021-01-29 17:26 | P.PN_ITS ---
Subjective Subjective: Interval history: Patient noted ongoing cough. No fever or chills, no nausea or vomiting. Medications: Reviewed: Yes Vitals/I&O/Wt Last Vital Signs Temp 97.9 F 01/29/21 15:21 Pulse 60 01/29/21 15:54 Resp 20 H 01/29/21 15:53 BP 162/96 01/29/21 15:21 Pulse Ox 94 01/29/21 15:53 01/29/21 01/29/21 01/29/21 06:59 14:59 22:59 Intake Total 50 / 590 150 / 150 Balance 50 / 590 150 / 150 Physical Exam Narrative: EXAM NARRATIVE: general exam no distress on 2L via NC Neck is supple no lymphadenopathy thyromegaly Cardiovascular regular rate and rhythm without murmur Lungs bilateral expiratory wheezes, rhonchi are noted bilaterally Abdomen is soft with positive bowel sounds, no obvious organomegaly. No pain to palpation. Extremities no cyanosis clubbing or edema Data : 01/29/21 05:32 01/29/21 05:32 Micro: Microbiology 01/27/21 14:08 Gram Stain - Final Sputum - Expectorated Sputum Sputum Culture - Final 01/29/21 05:35 Blood Culture - Preliminary Blood SPECIMEN COLLECTED 01/29/21 05:32 Blood Culture - Preliminary Blood SPECIMEN COLLECTED A&P Assessment and plan (1) COVID-19: Tested + January 24. From patient history symptoms were going on a week to a week and a half. Continue remdesivir and dexamethasone - on Dose 4/5 today. Not candidate for Actemra/ baricitinib secondary to superimposed bacterial infection Isolation precautions Continue current management Status: Acute (2) Pneumonia: Likely superimposed bacterial infection Atypical appearance of infiltrate on chest x-ray for Covid. Procalcitonin is positive Vancomycin and Zosyn initiated through the emergency department Sputum culture - pending MRSA negative. Currently off vancomycin. De-escalate antibiotics as soon as possible Wean oxygen as tolerated Pulmonary toilet with Combivent, Advair Incentive spirometry Procalcitonin improved to 6.9 Will plan to de-escalate abx in am Status: Acute (3) Pulmonary emboli: Full dose anticoagulation with Lovenox Transition to p.o. anticoagulant, if clinical improvement occurs and other procedures unlikely Likley transition in am Status: Acute (4) Hypokalemia: Potassium supplementation occurred in the ER Repeat labs in am Status: Acute Additional A&P Information Possible UTI. Urine growing gram-negative rods. Await culture and sensitivity. Full code Full dose Lovenox will suffice for DVT prophylaxis. Pepcid for GI prophylaxis Attestations Medical Necessity Statement*: Continue hospitalization for management of covid19, with superimposed bacterial infection on iv abx and remdesivir. Time Spent in Patient Care: Greater than 35 minutes (>than 50% of time spent in counselling and/or direct pt care on unit) . Coding Level of Care Code Acute Tunneller for [facility] Fwd Diagnoses COVID-19 U07.1 Pneumonia J18.9 Pulmonary emboli I26.99 Hypokalemia E87.6
[2021-01-30] VITALS (9 sets, daily range): BP systolic 135–180; BP diastolic 76–97; PULSE 53–61; RESP 18; TEMP 36.4–36.9; O2SAT 86–94
[2021-01-30] MEDS: labetalol 5 mg/mL SDV 20mL 10 MG IVP (04:08)
[2021-01-30] MEDS: amlodipine 10 mg Tablet PO ×2 (05:07→08:28)
[2021-01-30 05:47] LABS: Hematocrit 39.3 % (37.0-47.0); Hemoglobin 12.4 g/dL (11.5-15.3); Lymphocytes # 0.8 10^3/uL (0.8-4.8); Mean Corpuscular HGB Conc 31.6 g/dL (30.0-36.0); Mean Corpuscular Hemoglobin 29.9 pg (28.0-34.0); Mean Corpuscular Volume 94.7 fl (81-99); Mean Platelet Volume 10.4 fL (7.4-10.4); Monocytes # 0.6 10^3/uL (0.2-0.9); Neutrophils # 3.54 10^3/uL (1.8-7.7); Neutrophils % 68.2 %; Nucleated Red Blood Cells % 0 %; Platelet Count 212 10^3/cmm (130-400); Red Blood Count 4.15 10^6/uL (4.1-5.3); Red Cell Distribution Width 13.6 % (12.1-15.1); White Blood Count 5.2 10^3/uL (4.0-10.0)
[2021-01-30 06:12] LABS: Alanine Aminotransferase 51 U/L (0-33); Albumin Level 2.6 g/dL (3.5-5.2); Alkaline Phosphatase 48 IU/L (35-105); Aspartate Amino Transferase 56 U/L (0-32); Blood Urea Nitrogen 21 mg/dL (8-23); Calcium 7.8 mg/dL (8.5-10.5); Carbon Dioxide 24 mmol/L (22-29); Chloride 110 mmol/L (98-107); Globulin 2.7 g/dL (1.3-4.6); Glucose 102 mg/dL (65-115); Magnesium 2.2 mg/dL (1.7-2.3); Osmolality Calculated 297 mOsm/kg (285-295); Sodium 142 mmol/L (136-145); Total Bilirubin 0.2 mg/dL (0.15-1.2); Total Protein 5.3 g/dL (6.6-8.7)
[2021-01-30 06:19] LABS: Anion Gap 11.9 (5-19); Potassium 3.9 mmol/L (3.5-5.1)
[2021-01-30 06:28] LABS: Slide Review Slide Review Perform
[2021-01-30] MEDS: piperacillin-tazobactam 3.375 GM in sodium chloride 0.9% (plus) 50 ML IV (08:27)
[2021-01-30] MEDS: apixaban 5 mg Tablet 10 MG PO (08:27)
[2021-01-30] MEDS: levothyroxine 75 mcg Tablet PO (08:27)
[2021-01-30] MEDS: timolol 0.5% Op Soln 5 mL Btl 1 DROP EYE-BOTH (08:28)
--- NOTE | 2021-01-30 10:18 | P.DS_ITS ---
Discharge Providers Date of Admission: 01/26/21 11:04 Date of Discharge: January 30, 2021 Attending Provider at Admission: Abhijeet Qureshi MD Attending Provider at Discharge: Abhijeet Qureshi MD Primary Care Provider: Danielle Jacome MD Diagnoses at Discharge Discharge Diagnosis (1) COVID-19: Status: Acute (2) Pneumonia: Status: Acute (3) Pulmonary emboli: Status: Acute (4) Hypokalemia: Status: Acute Reason for Visit Reason for Visit: LOW O2, LIMITED INTAKE:BROUGHT UP FROM INFUSION Hospital Course Hospital Course Angely presented to the hospital on January 26 with nausea, diarrhea, and shortness of breath. She had recently had a positive Covid test. In the emergency department she was requiring oxygen. Chest x-ray indicated atypical infiltrate unusual for Covid. Procalcitonin was elevated, and there was concern of superimposed bacterial infection. She was admitted to the hospital and given dexamethasone, and remdesivir. Vancomycin and Zosyn were initiated and this was changed to Zosyn when MRSA PCR was negative. Pulmonary emboli were also noted on evaluation through the emergency department with CTA. Lovenox was initiated and this was converted to Eliquis during her hospital stay. During her hospital stay she had significant improvement, feeling better each day at which time it was thought she could be discharged on January 30. At that time she had received an adequate course of Zosyn IV for pneumonia, as well as Klebsiella UTI which was detected. She will finish up 3 more days of dexamethasone. She will continue Eliquis 10 mg twice daily for 1 week then reduce to 5 mg twice daily. She will follow-up with her primary care provider, and will return for any concerns. Risks and benefits of Eliquis were discussed in detail including bleeding. Home oxygen evaluation was done prior to discharge and she will require 2 L at discharge. Physical Exam Narrative: EXAM NARRATIVE: General exam no apparent distress Neck is supple Cardiovascular regular rate and rhythm without murmur Lungs a faint expiratory wheeze Abdomen is soft, positive bowel sounds Extremities no cyanosis clubbing or edema Discharge Data Data Completed and Pending: Completed Studies During Hospitalization Category Date Time Status CT angio chest w abd pel w con Urge nt Cat Scan 01/26/21 08:[address] head wo con* 7 0450 Urgent Cat Scan 01/26/21 08:36 Completed XR chest 1V yamini ble [id number] Urgent Exams 01/26/21 07:49 Completed Pending at discharge Category Date Time Status Blood Culture Sta t Lab 01/26/21 10:00 Results Blood Culture Sta t Lab 01/29/21 05:35 Results Labs from last 24 hours 01/30/21 01/30/21 01/30/21 05:35 05:35 05:35 WBC 5.2 RBC 4.15 Hgb 12.4 Hct 39.3 MCV 94.7 MCH 29.9 MCHC 31.6 RDW 13.6 Plt Count 212 MPV 10.4 Neut % (Auto) 68.2 Lymph % (Auto) 16.0 [place] % (Auto) 11.0 Eos % (Auto) 0.0 Baso % (Auto) 0.0 Neut # (Auto) 3.54 Lymph # (Auto) 0.8 [place] # (Auto) 0.6 Eos # (Auto) 0.0 Baso # (Auto) 0.0 Nucleated RBC % (a uto) 0 Nucleated RBCs # 0.0 Sodium 142 Potassium 3.9 Chloride 110 H Carbon Dioxide 24 Anion Gap 11.9 BUN 21 Creatinine 0.8 GFR Calculation 72.0 L Glucose 102 Calculated Osmolal ity 297 H Calcium 7.8 L Magnesium 2.2 Total Bilirubin 0.2 AST 56 H ALT 51 H Alkaline Phosphata se 48 Total Protein 5.3 L Albumin 2.6 L Globulin 2.7 Procalcitonin 2.30 H Vitals: Last Vital Signs Temp 97.5 F L 01/30/21 07:33 Pulse 57 L 01/30/21 07:33 Resp 18 01/30/21 07:33 BP 163/80 01/30/21 07:33 Pulse Ox 92 01/30/21 07:33 Discharge Plan Discharge Patient Disposition: Home Condition: Stable Prescriptions: New Advair Diskus 250-50 mcg/dose Blister With Device 1 ea inhalation BID.RESPIRATORY Qty: 60 RF: 0 amlodipine 10 mg Tablet 10 mg PO DAILY Qty: 30 RF: 0 Combivent Respimat 20-100 mcg/actuation Mist 1 puff inhalation QID.RESPIRATORY Qty: 4 RF: 0 apixaban 5 mg (74 tabs) tablets,dose pack See Rx Instructions .ROUTE .COMPLEX Qty: 74 RF: 0 dexamethasone 6 mg tablet 6 mg PO DAILY Qty: 3 RF: 0 atorvastatin 40 mg Tablet 20 mg PO DAILY Qty: 15 RF: 0 Continued levothyroxine 75 mcg tablet 75 mcg PO DAILY RF: 0 timolol maleate 0.5 % drops See Rx Instructions .ROUTE .COMPLEX RF: 0 Discontinued azithromycin 250 mg tablet 250 mg PO DAILY RF: 0 simvastatin 40 mg tablet 40 mg PO DAILY RF: 0 budesonide 0.5 mg/2 mL suspension for nebulization See Rx Instructions .ROUTE .COMPLEX RF: 0 Discharge Orders: Discharge Order (Routine); Ordered 01/30/21 Ordered By: Abhijeet Qureshi Other Ambulatory Orders: DME: Oxygen (Order) Location: None Selected Ordered By: Abhijeet Qureshi Referrals: Danielle Jacome MD [Primary Care Provider] - 4-7 days (Dr. Jacome's office will call you with an appointment.) Discharge Diet: Cardiac Discharge Activity: Increase activity as tolerated Patient Instructions: Amlodipine (By mouth), Atorvastatin (By mouth), Ipratropium/Albuterol (By breathing), Dexamethasone (By mouth), Fluticasone (Into the nose), Apixaban (By mouth), Opioid Safety, Pneumonia Stoplight, Pneumonia - Viral, Using Oxygen at Home Activity Restrictions/Additional Instructions: Please give her dose of remdesivir prior to discharge. Home oxygen evaluation prior to discharge Return for any concerns. Notify your physician immediately for any blood in stool, black or tarry stool Note that your apixaban is 10 mg twice daily for 1 week then 5 mg twice daily. Discharge Attestations Time Spent in Discharge Care*: greater than 30 min Quality Metrics Clinical Quality Measures During this hospital stay, did patient experience: None Coding Level of Care Code Acute [facility] note Diagnoses COVID-19 U07.1 Pneumonia J18.9 Pulmonary emboli I26.99 Hypokalemia E87.6
[2021-01-30] MEDS: remdesivir 100 MG in sodium chloride 0.9% (100 ml) 100 ML IV (10:58)
--- NOTE | 2021-01-30 12:47 | PC.NURSE ---
PT HAS DONE WELL FOR ME TODAY. PT HAS BEEN WANTING TO GO HOME THE PAST COUPLE OF DAYS. PT WILL DISCHARGE TODAY PER MD. LAST DOSE OF REMDESIVIR GIVEN THIS MORNING PER MD. HOME O2 EVAL COMPLETED, PT REQUIRES 2L NC. WAITING FOR HOME TO DELIVER OXYGEN. DISCHARGE PAPERWORK WAS GONE OVER WITH PT. ALL QUESTIONS ANSWERED. IV WAS REMOVED. PT IS NOW WAITING FOR OXYGEN AND HER RIDE TO GET HER. WILL CONTINUE TO MONITOR AND CARE FOR PT UNTIL SAFELY DISCHARGED.
--- NOTE | 2021-01-31 15:22 | PC.SOCIAL ---
spoke with patients daughter. she reports patient isn't eating or drinking well. she is encouraging patient to eat and drink but patient hasn't been compliant. medications picked up from the pharmacy. patient sent back advair and combivent inhaler, she doesn't wish to use those. reviewed other medications with daughter and patient is taking as directed. she will start eliquis tomorrow, she hasn't started as of yet because the pharmacy just now had them ready and patient it to take eliquis 10mg big for 1 week then 5 mg bid. pcp follow up date and time given to patients daughter, she will transport pt to appointment. patient is using o2 at 3l nc. discussed watching for blood in stool or while taking eliquis and increased awareness of safety from falls.
== END 2021-01-30 14:30 | disposition home or self-care (01) | DRG 177 ==
LOC: ER 09:16 → MEDSURG 12:11
PROVIDERS: Hospitalist; Admitting Provider Internal Medicine; Emergency Provider Emergency Medicine; PCP Internal Medicine; Visit Provider Internal Medicine
DX: U07.1 COVID-19 (principal); I26.99 Other pulmonary embolism without acute cor pulmonale; J12.82 Pneumonia due to coronavirus disease 2019; J18.9 Pneumonia, unspecified organism; N39.0 Urinary tract infection, site not specified; E87.6 Hypokalemia; B96.1 Klebsiella pneumoniae [K. pneumoniae] as the cause of diseases classified elsewhere; F17.210 Nicotine dependence, cigarettes, uncomplicated; E78.5 Hyperlipidemia, unspecified; E03.9 Hypothyroidism, unspecified; I10 Essential (primary) hypertension
CPT/HCPCS: 36415; 36600; 70450; 71045; 71275; 74177; 80053; 81001; 82803; 83605; 83735; 83880; 84145; 84443; 84484; 85025; 85378; 86140; 87040; 87070; 87077; 87086; 87186; 87205; 87641; 93005; 94640; 96365; 96367; 96372; 96375; 99285; J1100; J1650; J2405; J2543; J3370; J3490; J3535; J7040; Q9967

== ENCOUNTER 2021-08-16 12:08 | Outpatient (CLI) | payer MEDICARE, SELFPAY ==
--- NOTE | 2021-08-16 12:29 | XR_ITS ---
WS: [id number] XR shoulder RT min 2V* [id number] REASON FOR EXAM: PAIN IN RIGHT SHOULDER FINDINGS: No acute fracture or focal bone lesion. Narrowing of the acromioclavicular joint space with mild subc hondral sclerosis and marginal osteophytes. Mild narrowing of the glenohumeral joint with mild subchondral sclerosis in the glenoid. Sclerosis and cystic change in the biceps tuberosity. XR/XR shoulder RT min 2V* 10112 IMPRESSION: Mild to moderate osteoarthritis in the acromioclavicular joint and glenohumeral joint. Moderate rotator cuff tendon arthropathy.
== END 2021-08-16 12:09 | disposition home or self-care (01) ==
PROVIDERS: PCP Internal Medicine; Visit Provider Internal Medicine
DX: M19.011 Primary osteoarthritis, right shoulder (principal)
CPT/HCPCS: 73030

== ENCOUNTER → 2021-10-04 10:20 | Outpatient (BNVA) | payer MEDICARE, SELFPAY | PROVIDERS: PCP Internal Medicine; Referring Provider Internal Medicine; Visit Provider Orthopaedic Surgery | DX: M25.511 Pain in right shoulder (principal) | CPT/HCPCS: 99203 ==

== ENCOUNTER 2023-01-18 07:28 | Outpatient (CLI) | payer MEDICARE, MEDICAID, SELFPAY ==
--- NOTE | 2023-01-18 07:39 | CT_ITS ---
WS: [id number] LDCT LUNG CANCER SCREENING TECHNIQUE: Noncontrast CT of the chest with coronal and sagittal reformatted images. CLINICAL INFORMATION: NICOTINE DEPENDENCE,CIGARETTES COMPARISON: CTA 01/26/2021 DLP: 72.20 mGy.cm DIvol: Mean CTDIvol: 1.60 (mGy) All CT scans at [facility] use at least one of these dose optimization techniques: automat ed exposure control; mA and/or kV adjustment per patient size (includes targeted exams where dose is matched to clinical indication); or iterative reconstruction. FINDINGS: Subsegmental atelectasis in the lingula. A few tiny calcified granulomas LEFT upper lobe. A few tiny scattered nodules. No other suspicious pulmonary parenchymal abnormalities. Aorta calcification. Normal caliber thoracic aorta. Coronary calcification. No mediastinal or hilar l ymphadenopathy. Normal GE junction. Adrenal glands are normal. IMPRESSION: CT/CT lung screening 21036 LUNG-RADS: 2-Benign Appearance or Behavior FOLLOW UP: 12 Month: Continue annual screening with LDCT
== END 2023-01-18 07:29 | disposition home or self-care (01) ==
PROVIDERS: PCP Internal Medicine; Visit Provider Internal Medicine
DX: Z12.2 Encounter for screening for malignant neoplasm of respiratory organs (principal); F17.210 Nicotine dependence, cigarettes, uncomplicated
CPT/HCPCS: 71271

== ENCOUNTER 2023-02-21 09:14 | Oncology outpatient (recurring) (ONCR) | payer MEDICARE, MEDICAID, SELFPAY ==
[2023-02-21 15:42] LABS: Basophils # 0.1 10^3/uL (0.0-0.1); Basophils % 0.7 %; Eosinophils # 0.2 10^3/uL (0.0-0.8); Hematocrit 43.1 % (36-47); Lymphocytes # 2.1 10^3/uL (0.8-4.8); Lymphocytes % 27.8 %; Mean Corpuscular HGB Conc 32.3 g/dL (30-55); Mean Corpuscular Hemoglobin 30.5 pg (27-33); Mean Corpuscular Volume 94.7 fl (85-98); Mean Platelet Volume 9.6 fL (7.4-10.4); Monocytes # 0.7 10^3/uL (0.2-0.9); Monocytes % 9.1 %; Neutrophils # 4.49 10^3/uL (1.8-7.7); Neutrophils % 60.3 %; Nucleated Red Blood Cells % 0 %; Platelet Count 233 10^3/cmm (157-399); Red Blood Count 4.55 10^6/uL (3.85-5.65); Red Cell Distribution Width 13.3 % (12.1-15.1); White Blood Count 7.45 10^3/uL (3.29-11.43)
[2023-02-21 16:13] LABS: Carcinoembryonic Antigen 6.1 ng/mL (0.0-4.7)
[2023-02-21 16:25] LABS: Alanine Aminotransferase 13 U/L (0-33); Alkaline Phosphatase 78 U/L (35-105); Aspartate Amino Transferase 15 U/L (0-32); Blood Urea Nitrogen 14 mg/dL (8-23); Calcium 8.7 mg/dL (8.5-10.5); Carbon Dioxide 25 mmol/L (22-29); Chloride 105 mmol/L (98-107); Glomerular Filtration Rate 71.5 mL/min (90-130); Glucose 76 mg/dL (65-115); Osmolality Calculated 289 mOsm/kg (285-295); Sodium 140 mmol/L (136-145); Total Bilirubin 0.3 mg/dL (0.15-1.2)
== END 2023-03-12 23:59 | disposition home or self-care (01) ==
PROVIDERS: PCP Internal Medicine; Visit Provider Internal Medicine Medical Oncology
DX: C20 Malignant neoplasm of rectum (principal); Z79.899 Other long term (current) drug therapy; N28.89 Other specified disorders of kidney and ureter; Z90.711 Acquired absence of uterus with remaining cervical stump; Z90.49 Acquired absence of other specified parts of digestive tract
CPT/HCPCS: 71260; 74177; 80053; 82378; 85025; 99215; Q9967

== ENCOUNTER 2023-02-21 15:46 | Outpatient (CLI) | payer MEDICARE, MEDICAID, SELFPAY ==
[2023-02-21] MEDS: iohexol 350 mg/mL 500 mL Btl (per mL) IV (16:00)
[2023-02-21] MEDS: iohexol 350 mg/mL 500 mL Btl (per mL) PO (16:00)
--- NOTE | 2023-02-21 16:30 | CTR_ITS ---
PROCEDURE INFORMATION: Exam: CT Chest With Contrast; Diagnostic Exam date and time: 02/21/2023 5:00 PM Age: 67 years old Clinical indication: Condition or disease; Intestine, large; Other: Rectal cancr; Primary cancer: Rectal cancer; Follow-up oncological assessment; Prior surgery; Surgery date: 6+ months; Surgery type: Appy, gb, partial hyst TECHNIQUE: Imaging protocol: Diagnostic computed tomography of the chest with contrast. Radiation optimization: All CT scans at this facility use at least one of these dose optimization techniques: automated exposure control; mA and/or kV adjustment per patient size (includes targeted exams where dose is matched to clinical indication); or iterative reconstruction. Contrast material: OMNI 350; Contrast volume: 100 ml; Contrast route: INTRAVENOUS (IV); REPORTING DATA: Count of CT and Cardiac NM exams in prior 12 months: This patient has received [address] and 0 known cardiac nuclear medicine studies in the 12 months prior to the current study. COMPARISON: 1. CT lung screening [id number] 01/18/2023 7:[address] angio chest w abd pel w con 01/26/2021 10:22 AM RADIATION DOSE METRICS: Total DLP (mGy-cm): 1213.99 FINDINGS: Lungs: Few calcified left lower lobe granulomata. No consolidation. No mass. No suspicious nodules. Pleural spaces: Unremarkable. No pneumothorax. No pleural effusion. Heart: Unremarkable. No cardiomegaly. No pericardial effusion. Coronary arteries: Mild coronary artery calcification. Lymph nodes: No enlarged lymph nodes. Vasculature: Mild systemic atherosclerosis without aortic aneurysm. Diaphragm: Small hiatal hernia. Bones/joints: Unremarkable. No acute fracture. Soft tissues: Unremarkable. PROCEDURE INFORMATION: Exam: CT Abdomen And Pelvis With Contrast Exam date and time: 02/21/2023 5:00 PM Age: 67 years old Clinical indication: Condition or disease; Intestine, large; Other: Rectal cancr; Primary cancer: Rectal cancer; Follow-up oncological assessment; Prior surgery; Surgery date: 6+ months; Surgery type: Appy, gb, partial hyst TECHNIQUE: Imaging protocol: Computed tomography of the abdomen and pelvis with contrast. Radiation optimization: All CT scans at this facility use at least one of these dose optimization techniques: automated exposure control; mA and/or kV adjustment per patient size (includes targeted exams where dose is matched to clinical indication); or iterative reconstruction. Contrast material: OMNI 350; Contrast volume: 100 ml; Contrast route: INTRAVENOUS (IV); REPORTING DATA: Count of CT and Cardiac NM exams in prior 12 months: This patient has received [address] and 0 known cardiac nuclear medicine studies in the 12 months prior to the current study. COMPARISON: 1. CT angio chest w abd pel w con 01/26/2021 10:[address] lung screening [id number] 01/18/2023 7:46 AM RADIATION DOSE METRICS: Total DLP (mGy-cm): 1213.99 FINDINGS: Liver: Normal without focal lesions. Gallbladder and bile ducts: Stable evidence of prior cholecystectomy with mild prominence of the common duct. Pancreas: Normal without ductal dilatation. Spleen: Normal. Adrenal glands: Normal. No mass. Kidneys and ureters: Simple appearing right renal cyst and subcentimeter hypodensities too small to characterize are statistically likely benign and require no dedicated imaging follow-up. Mildly exophytic 2.2 x 1.8 x 2.4 cm (TV x AP x CC) solid-appearing left lower renal mass, suspect present previously but seen to greater advantage today. Otherwise unremarkable. Stomach and bowel: No obstruction. No evidence of mucosal thickening. Colonic diverticulosis without findings of diverticulitis. Mild asymmetric rectal thickening. Appendix: No evidence of appendicitis. Intraperitoneal space: No free air, free fluid, or well-organized fluid collection. Vasculature: Moderate systemic atherosclerosis without abdominal aortic aneurysm. Lymph nodes: No enlarged lymph nodes. Urinary bladder: Urinary bladder is unremarkable. Reproductive: The uterus is surgically absent. Bones/joints: Unremarkable. No acute fracture. Soft tissues: Unremarkable. CT/CT chest abdpel w/*[id number] IMPRESSION: No acute findings or evidence of metastatic disease to the chest. IMPRESSION: 1. Mild asymmetric rectal thickening. 2. No evidence of metastatic disease to the abdomen or pelvis. 3. 2.4 cm left lower renal mass. Recommend non-emergent MRI without and with contrast or non-emergent CT without and with contrast. MRI is preferred for masses under 1.5 cm. COMMENTS: Consistent with the [employer]'s Incidental Findings Committee white paper (J Am Chrissy Radiol 2018): Any incidental renal lesion less than 1 cm or classified as too small to characterize, or any incidental cystic renal lesion characterized as simple-appearing, is likely benign. No follow-up imaging is recommended for these lesions per consensus recommendations based on imaging criteria.
== END 2023-02-21 15:47 | disposition home or self-care (01) ==
PROVIDERS: PCP Internal Medicine; Visit Provider Internal Medicine Medical Oncology
DX: C20 Malignant neoplasm of rectum (principal); N28.89 Other specified disorders of kidney and ureter; Z90.711 Acquired absence of uterus with remaining cervical stump; Z90.49 Acquired absence of other specified parts of digestive tract
CPT/HCPCS: 71260; 74177; Q9967

== ENCOUNTER 2023-04-01 09:49 | Oncology outpatient (recurring) (ONCR) | payer MEDICARE, MEDICAID, SELFPAY ==
--- NOTE | 2023-04-01 16:24 | N.ONRAD NP_ITS ---
Radiation Oncology New Patient Visit Patient: Angely Potts MR#: [id number] : 1955> Age: 67> Sex: Female> Dictated by: Sixto Alberts Date of Service: 04/01/2023 Referring Physician(s) : Farrukh Sahu MD; Bruno Streeter MD Diagnosis: C20 - malignant neoplasm of rectum, Diagnosed 02/04/2023 (active). Rectum, adenocarcinoma, stage [id number] Radiotherapy to date: Summary > No prior radiation therapy. Chief Complaint / History of Present Illness: Ms. Potts is a 67-year-old lady who presented with light rectal bleeding and complaints of pelvic discomfort and tenesmus with bowel movements. She underwent a colonoscopy on 01/31/2023. She was found to have a lower rectal ulcerated mass consistent with malignancy. Biopsy was positive for moderately differentiated adenocarcinoma. She also had an inflammatory mucosal polyp at the rectosigmoid junction and a proximal sigmoid tubular adenoma which was negative for high-grade dysplasia. CT of the chest abdomen pelvis did not show any regional or distant metastases. She was referred to Dr. Streeter at [facility] in [place]. He recommended an MRI of the pelvis. That study was performed and revealed the mass to involve the bowel wall but not penetrate it. The mass reach distally to within 3.5 cm of the anal verge. It was estimated to be 4.6 cm in length. It was described as circumferential with just sparing of the anterior wall at the midline between 11:00 and 1:00. The maximum thickness of tumor was 11 mm at 3:00. The patient is very reluctant to consider a colostomy. Therefore Dr. Streeter recommended that she undergo local therapy and then be evaluated for either surveillance or surgery, depending upon the response to treatment. Ms. Potts is referred to be evaluated and to discuss radiation as part of curative therapy or preoperative therapy. Current Medications: apixaban orally per package directions levothyroxine 75 mcg PO DAILY Simvastatin 40qd timolol maleate 0.5% USE DIRECTED Allergies: morphine Allergy (Intermediate, Verified 02/21/23 09:55) Unknown tuberculin,PPD,multi-puncture Allergy (Intermediate, Verified 02/21/23 10:00) ADR-Itching ibuprofen Allergy (Mild, Verified 02/21/23 09:55) ADR-Vomiting antihistamines Allergy (Severe, Uncoded 02/21/23 09:55) ALGY-Hives Bio-Gel Allergy (Intermediate, Uncoded 02/21/23 09:55) ADR-Swelling of the Eye Latex Medical History: No history of collagen vascular disease. No previous radiation therapy. Surgical History: History of appendectomy 2 C-Sections Trigger finger release History of cholecystectomy History of colonoscopy (01/31/23) History of hysterectomy History of knee surgery History of tonsillectomy Eye surgery for glaucoma and cataract last week. Her other is scheduled for the same operation approximately April 16. Family History: Clotting Problems; Hypothyroidism Social History: She smokes up to 1-1/2 packs/day. No alcoholic beverage intake. No substance abuse. She is here with 2 daughters today. Current Complaints / Review of Systems: . Head and neck: She has glaucoma and cataracts. She had surgery on 1 eye last week and will have surgery on the other in early April. No hearing problems.Pulmonary: No cough, sputum production, hemoptysis, wheezing.Cardiovascular: No heart issues, chest pain, peripheral edema. : No difficulty with hesitancy, frequency, dysuria, hematuria, or incomplete voiding. She does have abdominal cramping pain at times when she is trying to urinate.Gastrointestinal: No chewing problems difficulty swallowing, or digestion problems. She does have tenesmus and pain and bleeding with bowel movements.Genitourinary: No frequency, urgency, incomplete emptying, leakage, dysuria, hematuria, or pyuria. She does have pelvic pain with emptying her bladder.Musculoskeletal: No trouble with the use of extremities. No difficulty with gait. No complaints of isolated bone pain or joint pain. Vital Signs: Performed on 04/01/2023 10:02 AM BMI - 35.909 kg/m2 (high), Height - 64 in, Weight - 209.2 lbs, Temperature - 97.2 f, Pulse - 77 /min, Respiration - 18 /min, O2 Sat - 97 %, Pain - 0, Fatigue - 0 and BP - 141/ 65 mm(hg)(high/). Physical Exam: General: Alert, oriented, no acute distress.Neck: Supple. No masses. No cervical or supraclavicular lymphadenopathy. Lungs: No rales, rhonchi, or wheezes on auscultation. Normal on percussion.Heart: Regular rhythm. No murmur, gallop, or rub. (She has been previously noted to have a systolic heart murmur, but I did not hear it today). Abdomen: No distention. No organomegaly mass, or tenderness. Pelvic: Normal external genitalia. Normal-appearing vaginal mucosa. No lesions of the vagina. No involvement of the posterior vaginal wall by the rectal cancer. The rectal exam revealed normal sphincter tone with no external lesions. In both the vagina (palpating through the posterior vaginal wall) and with the digit in the rectum I measured the mass at approximately 4 cm from the anal verge. Pelvic exam otherwise unremarkable. Performance Status: KPS 40 (eyes) Impression: Ms. Potts has a low-lying rectal cancer. Surgery has a high risk of producing an ostomy but also could be curative. Patient is quite unwilling to have an ostomy. Therefore Dr. Streeter has referred her for chemotherapy and radiation. I discussed this with her and her daughters. I then personally discussed her case with Dr. Sahu. He saw the patient after I and the patient confirmed her desire to avoid a colostomy. He discussed that the best chance for that would be have multiagent chemotherapy followed by external beam radiation with single agent chemotherapy given concomitantly. A short course of radiation would not be appropriate in that setting and so she would receive 5-1/2 to 6 weeks of radiation. When I was seeing the patient I discussed a typical course of pelvic radiation delivered over 5-1/2 to 6 weeks. I reviewed the potential side effects. I then reviewed the risk of bowel or bladder injury that could result in the need for an ostomy. She confirmed with Dr. Sahu that she wants to take aggressive therapy and attempt to avoid an ostomy. She will receive multiagent chemotherapy and after that is completed will be considered for external beam radiation and single agent chemotherapy concomitantly. Plan: Proceed with chemotherapy. She will start after . Signed by: 04/01/2023 4:23:00 PM <<Signature on File>> Time spent with patient: CPT Code: CPT Code:
== END 2023-04-11 23:59 | disposition home or self-care (01) ==
PROVIDERS: PCP Internal Medicine; Visit Provider Specialist
DX: C20 Malignant neoplasm of rectum (principal)
CPT/HCPCS: 99205; 99215

== ENCOUNTER → 2023-05-15 09:57 | Day surgery (SDC) | payer MEDICARE, MEDICAID, SELFPAY ==
--- NOTE | 2023-05-15 09:59 | XR_ITS ---
WS: [id number] Portable AP supine chest, 05/15/2023 Clinical Data: Post PICC insertion Comparison: Portable chest, 01/26/2021 Findings: A left PICC line has been inserted and ends in the distal SVC. No pneumothorax is seen. Impression: Insertion of left PICC line.
[2023-05-15 10:26] VITALS: BP 151/94; PULSE 72; RESP 18; TEMP 36.4; O2SAT 96
--- NOTE | 2023-05-15 10:30 | PC.NURSE ---
Double lumen PICC placed to left basilic vein. Referred to vascular access nurse for PICC placement for chemo from [facility]. Risks and benefits discussed and informed consent obtained from patient. Pt right hand dominant and requests PICC in left upper extremity. Left arm assessed with left basilic vein measuring 4.5 mm, straight, and apparent best choice for placement. Using sterile technique and MST, left basilic vein accessed x 1 stick. Mid-arm circumference measured 10 cm from left AC 34 cm. Trimmed cath 46 cm with 1 cm external length noted. CXR shows tip in distal SVC, in good position for use per radiologist. Line secured with stat-lock. Insertion site covered with Biopatch and TSM. Pt has appointment at [facility] at 2:15 tomorrow for dressing change.
== END ==
PROVIDERS: PCP Internal Medicine; Visit Provider Internal Medicine Medical Oncology
DX: Z45.2 Encounter for adjustment and management of vascular access device (principal)
CPT/HCPCS: 36573; 71045

== ENCOUNTER 2023-06-10 11:00 | Oncology outpatient (recurring) (ONCR) | payer MEDICARE, MEDICAID, SELFPAY ==
[2023-05-16 14:15] VITALS: BP 148/85; PULSE 81; RESP 16; TEMP 37.1; O2SAT 97
[2023-05-20 07:37] VITALS: BP 156/99; PULSE 86; RESP 16; TEMP 36.6; O2SAT 96
[2023-05-20 07:59] LABS: Basophils # 0.1 10^3/uL (0.0-0.1); Basophils % 0.8 %; Eosinophils # 0.2 10^3/uL (0.0-0.8); Eosinophils % 2.6 %; Hematocrit 43.3 % (36-47); Lymphocytes # 1.4 10^3/uL (0.8-4.8); Lymphocytes % 22.4 %; Mean Corpuscular HGB Conc 32.3 g/dL (30-55); Mean Corpuscular Hemoglobin 30.6 pg (27-33); Mean Corpuscular Volume 94.7 fl (85-98); Mean Platelet Volume 9.3 fL (7.4-10.4); Monocytes # 0.6 10^3/uL (0.2-0.9); Monocytes % 8.7 %; Neutrophils # 4.18 10^3/uL (1.8-7.7); Neutrophils % 65.2 %; Nucleated Red Blood Cells % 0 %; Platelet Count 184 10^3/cmm (157-399); Red Blood Count 4.57 10^6/uL (3.85-5.65); Red Cell Distribution Width 13.4 % (12.1-15.1); White Blood Count 6.42 10^3/uL (3.29-11.43)
[2023-05-20 08:24] LABS: Alanine Aminotransferase 12 U/L (0-33); Albumin Level 3.9 g/dL (3.5-5.2); Alkaline Phosphatase 78 U/L (35-105); Aspartate Amino Transferase 16 U/L (0-32); Blood Urea Nitrogen 14 mg/dL (8-23); Calcium 9.1 mg/dL (8.5-10.5); Carbon Dioxide 25 mmol/L (22-29); Chloride 106 mmol/L (98-107); Globulin 2.6 g/dL (1.3-4.6); Glomerular Filtration Rate 71.5 mL/min (90-130); Glucose 95 mg/dL (65-115); Osmolality Calculated 290 mOsm/kg (285-295); Sodium 140 mmol/L (136-145); Total Bilirubin 0.4 mg/dL (0.15-1.2); Total Protein 6.5 g/dL (6.6-8.7)
[2023-05-20 08:26] LABS: Anion Gap 13.5 (5-19); Potassium 4.5 mmol/L (3.5-5.1)
[2023-05-20] MEDS: palonosetron 0.25 mg/5 mL SDV IVP (11:14)
[2023-05-20] MEDS: dextrose 5% 250 ML 75 ML IV (11:14)
[2023-05-20] MEDS: leucovorin 800 MG in dextrose 5% 250 ML 82.5 MG IV (11:42)
[2023-05-20] MEDS: oxaliplatin 100 MG, oxaliplatin 70 MG in dextrose 5% 250 ML 142 MG IV (11:42)
[2023-05-20] MEDS: fluorouraciL 4,800 MG, elastomeric pump 1 PUMP in sodium chloride 0.9% (100 ml) 0 ML IV (15:03)
[2023-05-22 14:56] VITALS: BP 131/79; PULSE 73; O2SAT 95
[2023-05-27 12:51] VITALS: BP 136/83; PULSE 78; RESP 18; TEMP 36.6; O2SAT 97
[2023-05-27 13:22] LABS: Basophils % 0.4 %; Eosinophils # 0.3 10^3/uL (0.0-0.8); Hematocrit 42.4 % (36-47); Lymphocytes # 1.5 10^3/uL (0.8-4.8); Lymphocytes % 18.1 %; Mean Corpuscular HGB Conc 32.3 g/dL (30-55); Mean Corpuscular Hemoglobin 29.8 pg (27-33); Mean Corpuscular Volume 92.4 fl (85-98); Mean Platelet Volume 10.1 fL (7.4-10.4); Monocytes # 0.7 10^3/uL (0.2-0.9); Monocytes % 7.7 %; Neutrophils % 69.6 %; Nucleated Red Blood Cells % 0 %; Platelet Count 180 10^3/cmm (157-399); Red Blood Count 4.59 10^6/uL (3.85-5.65); Red Cell Distribution Width 12.9 % (12.1-15.1); White Blood Count 8.47 10^3/uL (3.29-11.43)
[2023-05-27 13:43] LABS: Alanine Aminotransferase 13 U/L (0-33); Albumin Level 3.8 g/dL (3.5-5.2); Alkaline Phosphatase 81 U/L (35-105); Aspartate Amino Transferase 16 U/L (0-32); Blood Urea Nitrogen 14 mg/dL (8-23); Calcium 9.4 mg/dL (8.5-10.5); Carbon Dioxide 24 mmol/L (22-29); Chloride 100 mmol/L (98-107); Glomerular Filtration Rate 83.5 mL/min (90-130); Glucose 90 mg/dL (65-115); Osmolality Calculated 280 mOsm/kg (285-295); Sodium 135 mmol/L (136-145); Total Bilirubin 0.5 mg/dL (0.15-1.2); Total Protein 6.8 g/dL (6.6-8.7)
[2023-05-27 13:45] LABS: Anion Gap 15.3 (5-19); Potassium 4.3 mmol/L (3.5-5.1)
[2023-06-05 07:55] VITALS: BP 112/78; BP 122/78; PULSE 78; RESP 18; TEMP 36.6; O2SAT 94
[2023-06-05 08:09] LABS: Eosinophils # 0.2 10^3/uL (0.0-0.8); Eosinophils % 4.1 %; Hematocrit 39.6 % (36-47); Lymphocytes # 1.2 10^3/uL (0.8-4.8); Lymphocytes % 30.6 %; Mean Corpuscular HGB Conc 32.3 g/dL (30-55); Mean Corpuscular Volume 92.7 fl (85-98); Mean Platelet Volume 9.8 fL (7.4-10.4); Monocytes # 0.6 10^3/uL (0.2-0.9); Monocytes % 16.3 %; Neutrophils # 1.87 10^3/uL (1.8-7.7); Neutrophils % 47.7 %; Nucleated Red Blood Cells % 0 %; Platelet Count 197 10^3/cmm (157-399); Red Blood Count 4.27 10^6/uL (3.85-5.65); Red Cell Distribution Width 13.8 % (12.1-15.1); White Blood Count 3.92 10^3/uL (3.29-11.43)
[2023-06-05 08:37] LABS: Alanine Aminotransferase 27 U/L (0-33); Albumin Level 3.7 g/dL (3.5-5.2); Alkaline Phosphatase 75 U/L (35-105); Blood Urea Nitrogen 15 mg/dL (8-23); Carbon Dioxide 25 mmol/L (22-29); Chloride 106 mmol/L (98-107); Globulin 2.8 g/dL (1.3-4.6); Glomerular Filtration Rate 83.5 mL/min (90-130); Glucose 93 mg/dL (65-115); Osmolality Calculated 291 mOsm/kg (285-295); Sodium 140 mmol/L (136-145); Total Bilirubin 0.3 mg/dL (0.15-1.2); Total Protein 6.5 g/dL (6.6-8.7)
[2023-06-05 08:42] LABS: Anion Gap 13.7 (5-19); Aspartate Amino Transferase 28 U/L (0-32); Potassium 4.7 mmol/L (3.5-5.1)
[2023-06-05 09:09] LABS: Slide Review Slide Review Perform
[2023-06-05] MEDS: dextrose 5% 250 ML 75 ML IV (10:03)
[2023-06-05] MEDS: palonosetron 0.25 mg/5 mL SDV IVP (10:04)
[2023-06-05] MEDS: leucovorin 800 MG in dextrose 5% 250 ML 82.5 MG IV (10:48)
[2023-06-05] MEDS: oxaliplatin 100 MG, oxaliplatin 48 MG in dextrose 5% 250 ML 139.8 MG IV (10:49)
[2023-06-05] MEDS: fluorouraciL 3,800 MG, elastomeric pump 1 PUMP in sodium chloride 0.9% (100 ml) 16 ML IV (14:14)
[2023-06-05 14:15] VITALS: BP 122/78; PULSE 78; RESP 18; TEMP 36.6; O2SAT 98
[2023-06-07 10:28] VITALS: BP 138/84; PULSE 62; RESP 17; TEMP 36.5; O2SAT 94
== END 2023-06-12 23:59 | disposition home or self-care (01) ==
PROVIDERS: Nurse Practitioner Family; PCP Internal Medicine; Visit Provider Radiology Radiation Oncology
DX: Z45.2 Encounter for adjustment and management of vascular access device (principal)
CPT/HCPCS: 99214; 36592; 80053; 85025; 96365; 96367; 96368; 96375; 96413; 96415; 96416; 96523; 99215; J0640; J1100; J1642; J2469; J7060; J9190; J9263

== ENCOUNTER 2023-06-27 14:39 | Outpatient (CLI) | payer MEDICARE, MEDICAID, SELFPAY ==
[2023-06-27] MEDS: iohexol 350 mg/mL 500 mL Btl (per mL) PO (15:31)
--- NOTE | 2023-06-27 16:41 | CTR_ITS ---
PROCEDURE INFORMATION: Exam: CT Chest Without Contrast; Diagnostic Exam date and time: 06/27/2023 4:41 PM Age: 67 years old Clinical indication: Condition or disease; Other: Rectal cancer TECHNIQUE: Imaging protocol: Diagnostic computed tomography of the chest without contrast. Radiation optimization: All CT scans at this facility use at least one of these dose optimization techniques: automated exposure control; mA and/or kV adjustment per patient size (includes targeted exams where dose is matched to clinical indication); or iterative reconstruction. COMPARISON: CT chest abdpel w/*[id number] 02/21/2023 5:00 PM RADIATION DOSE METRICS: Total DLP (mGy-cm): 998.88 FINDINGS: Lungs: Unremarkable. No consolidation. No masses. Pleural spaces: Unremarkable. No pneumothorax. No pleural effusion. Heart: Unremarkable. No cardiomegaly. No pericardial effusion. Lymph nodes: Unremarkable. No enlarged lymph nodes. Vasculature: Unremarkable. No aortic aneurysm. Bones/joints: Unremarkable. No acute fracture. Soft tissues: Unremarkable. PROCEDURE INFORMATION: Exam: CT Abdomen And Pelvis Without Contrast Exam date and time: 06/27/2023 4:41 PM Age: 67 years old Clinical indication: Condition or disease; Other: Rectal cancer TECHNIQUE: Imaging protocol: Computed tomography of the abdomen and pelvis without contrast. Radiation optimization: All CT scans at this facility use at least one of these dose optimization techniques: automated exposure control; mA and/or kV adjustment per patient size (includes targeted exams where dose is matched to clinical indication); or iterative reconstruction. COMPARISON: MR pelvis wo/w con [id number] 03/08/2023 9:42 AM RADIATION DOSE METRICS: Total DLP (mGy-cm): 998.88 FINDINGS: Liver: Normal. No mass. Gallbladder and bile ducts: Cholecystectomy. Pancreas: Normal. No ductal dilation. Spleen: Normal. No splenomegaly. Adrenal glands: Normal. No mass. Kidneys and ureters: Stable 2.2 cm lower pole left renal mass. Stable right renal cyst. Stomach and bowel: Diverticulosis without evidence of diverticulitis. Appendix: No evidence of appendicitis. Intraperitoneal space: Unremarkable. No free air. No significant fluid collection. Vasculature: Unremarkable. No abdominal aortic aneurysm. Lymph nodes: Unremarkable. No enlarged lymph nodes. Urinary bladder: Unremarkable as visualized. Reproductive: Hysterectomy. Bones/joints: Unremarkable. No acute fracture. Soft tissues: Unremarkable. CT/[place] [id number] IMPRESSION: No acute findings. IMPRESSION: 1. No significant change. No evidence of metastatic disease. 2. Stable left renal mass.
== END 2023-06-27 14:40 | disposition home or self-care (01) ==
LOC: RAD 14:41
PROVIDERS: PCP Internal Medicine; Visit Provider Internal Medicine Medical Oncology
DX: C20 Malignant neoplasm of rectum; N28.89 Other specified disorders of kidney and ureter
CPT/HCPCS: 71250; 74176; Q9967

== ENCOUNTER 2023-07-09 07:33 | Oncology outpatient (recurring) (ONCR) | payer MEDICARE, MEDICAID, SELFPAY ==
[2023-06-17 08:40] LABS: Basophils % 0.6 %; Eosinophils # 0.2 10^3/uL (0.0-0.8); Eosinophils % 4.4 %; Hematocrit 37.6 % (36-47); Lymphocytes # 1.1 10^3/uL (0.8-4.8); Lymphocytes % 21.6 %; Mean Corpuscular HGB Conc 32.2 g/dL (30-55); Mean Corpuscular Hemoglobin 30.5 pg (27-33); Mean Corpuscular Volume 94.7 fl (85-98); Mean Platelet Volume 9.8 fL (7.4-10.4); Monocytes # 0.6 10^3/uL (0.2-0.9); Monocytes % 12.1 %; Neutrophils # 3.17 10^3/uL (1.8-7.7); Neutrophils % 61.1 %; Nucleated Red Blood Cells % 0 %; Platelet Count 104 10^3/cmm (157-399); Red Blood Count 3.97 10^6/uL (3.85-5.65); Red Cell Distribution Width 14.6 % (12.1-15.1); White Blood Count 5.19 10^3/uL (3.29-11.43)
[2023-06-17 09:06] LABS: Carcinoembryonic Antigen 8.3 ng/mL (0.0-4.7)
[2023-06-17 09:18] LABS: Alanine Aminotransferase 32 U/L (0-33); Albumin Level 3.5 g/dL (3.5-5.2); Alkaline Phosphatase 73 U/L (35-105); Aspartate Amino Transferase 31 U/L (0-32); Blood Urea Nitrogen 12 mg/dL (8-23); Carbon Dioxide 24 mmol/L (22-29); Chloride 105 mmol/L (98-107); Globulin 2.8 g/dL (1.3-4.6); Glomerular Filtration Rate 71.5 mL/min (90-130); Glucose 90 mg/dL (65-115); Osmolality Calculated 287 mOsm/kg (285-295); Sodium 139 mmol/L (136-145); Total Bilirubin 0.3 mg/dL (0.15-1.2); Total Protein 6.3 g/dL (6.6-8.7)
[2023-06-17 09:19] LABS: Anion Gap 14.5 (5-19); Potassium 4.5 mmol/L (3.5-5.1)
[2023-06-17] MEDS: dextrose 5% 250 ML 75 ML IV (10:13)
[2023-06-17] MEDS: palonosetron 0.25 mg/5 mL SDV IVP (10:14)
[2023-06-17] MEDS: oxaliplatin 100 MG, oxaliplatin 48 MG in dextrose 5% 250 ML 139.800000000000011 MG IV (10:52)
[2023-06-17] MEDS: leucovorin 800 MG in dextrose 5% 250 ML 62.5 MG IV (10:53)
[2023-06-17] MEDS: fluorouraciL 3,800 MG, elastomeric pump 1 PUMP in sodium chloride 0.9% (100 ml) 16 ML IV (14:12)
[2023-06-19 11:56] VITALS: BP 146/84; PULSE 70; TEMP 36.4; O2SAT 98
[2023-06-27 14:44] LABS: Basophils % 0.5 %; Eosinophils # 0.1 10^3/uL (0.0-0.8); Eosinophils % 2.7 %; Hematocrit 36.2 % (36-47); Lymphocytes # 1.3 10^3/uL (0.8-4.8); Lymphocytes % 29.1 %; Mean Corpuscular HGB Conc 32.3 g/dL (30-55); Mean Corpuscular Hemoglobin 30.9 pg (27-33); Mean Corpuscular Volume 95.5 fl (85-98); Monocytes # 0.7 10^3/uL (0.2-0.9); Monocytes % 16.7 %; Neutrophils % 50.3 %; Nucleated Red Blood Cells % 0.5 %; Platelet Count 113 10^3/cmm (157-399); Red Blood Count 3.79 10^6/uL (3.85-5.65); Red Cell Distribution Width 15.5 % (12.1-15.1); White Blood Count 4.37 10^3/uL (3.29-11.43)
[2023-06-27 15:16] LABS: Alanine Aminotransferase 25 U/L (0-33); Albumin Level 3.6 g/dL (3.5-5.2); Alkaline Phosphatase 75 U/L (35-105); Anion Gap 11.7 (5-19); Aspartate Amino Transferase 23 U/L (0-32); Blood Urea Nitrogen 14 mg/dL (8-23); Calcium 8.5 mg/dL (8.5-10.5); Carbon Dioxide 26 mmol/L (22-29); Chloride 105 mmol/L (98-107); Globulin 2.6 g/dL (1.3-4.6); Glomerular Filtration Rate 71.5 mL/min (90-130); Glucose 98 mg/dL (65-115); Osmolality Calculated 288 mOsm/kg (285-295); Potassium 3.7 mmol/L (3.5-5.1); Sodium 139 mmol/L (136-145); Total Bilirubin 0.2 mg/dL (0.15-1.2); Total Protein 6.2 g/dL (6.6-8.7)
[2023-07-01 08:14] LABS: Basophils % 0.3 %; Eosinophils # 0.1 10^3/uL (0.0-0.8); Hematocrit 37.2 % (36-47); Lymphocytes # 0.8 10^3/uL (0.8-4.8); Lymphocytes % 25.3 %; Mean Corpuscular HGB Conc 32.5 g/dL (30-55); Mean Corpuscular Hemoglobin 30.9 pg (27-33); Mean Corpuscular Volume 94.9 fl (85-98); Mean Platelet Volume 10.3 fL (7.4-10.4); Monocytes # 0.5 10^3/uL (0.2-0.9); Monocytes % 17.3 %; Neutrophils # 1.61 10^3/uL (1.8-7.7); Neutrophils % 53.8 %; Nucleated Red Blood Cells % 0 %; Platelet Count 98 10^3/cmm (157-399); Red Blood Count 3.92 10^6/uL (3.85-5.65); Red Cell Distribution Width 16.2 % (12.1-15.1)
[2023-07-01 08:35] LABS: Alanine Aminotransferase 24 U/L (0-33); Albumin Level 3.6 g/dL (3.5-5.2); Alkaline Phosphatase 76 U/L (35-105); Anion Gap 11.5 (5-19); Aspartate Amino Transferase 25 U/L (0-32); Blood Urea Nitrogen 13 mg/dL (8-23); Calcium 8.7 mg/dL (8.5-10.5); Carbon Dioxide 27 mmol/L (22-29); Chloride 107 mmol/L (98-107); Globulin 2.9 g/dL (1.3-4.6); Glomerular Filtration Rate 71.5 mL/min (90-130); Glucose 105 mg/dL (65-115); Osmolality Calculated 292 mOsm/kg (285-295); Potassium 4.5 mmol/L (3.5-5.1); Sodium 141 mmol/L (136-145); Total Bilirubin 0.3 mg/dL (0.15-1.2); Total Protein 6.5 g/dL (6.6-8.7)
[2023-07-09 08:02] LABS: Basophils % 0.3 %; Eosinophils # 0.1 10^3/uL (0.0-0.8); Eosinophils % 2.4 %; Hematocrit 37.8 % (36-47); Lymphocytes # 0.8 10^3/uL (0.8-4.8); Mean Corpuscular HGB Conc 32.5 g/dL (30-55); Mean Corpuscular Hemoglobin 30.5 pg (27-33); Mean Corpuscular Volume 93.8 fl (85-98); Mean Platelet Volume 9.3 fL (7.4-10.4); Monocytes # 0.6 10^3/uL (0.2-0.9); Monocytes % 16.9 %; Neutrophils # 1.83 10^3/uL (1.8-7.7); Neutrophils % 55.1 %; Nucleated Red Blood Cells % 0 %; Platelet Count 124 10^3/cmm (157-399); Red Blood Count 4.03 10^6/uL (3.85-5.65); Red Cell Distribution Width 16.2 % (12.1-15.1); White Blood Count 3.32 10^3/uL (3.29-11.43)
[2023-07-09 08:23] LABS: Alanine Aminotransferase 21 U/L (0-33); Albumin Level 3.7 g/dL (3.5-5.2); Alkaline Phosphatase 77 U/L (35-105); Anion Gap 13.4 (5-19); Aspartate Amino Transferase 23 U/L (0-32); Blood Urea Nitrogen 17 mg/dL (8-23); Calcium 8.8 mg/dL (8.5-10.5); Carbon Dioxide 26 mmol/L (22-29); Chloride 105 mmol/L (98-107); Creatinine Clr Calc Pharmacy 61.9025; Globulin 2.9 g/dL (1.3-4.6); Glomerular Filtration Rate 55.3 mL/min (90-130); Glucose 97 mg/dL (65-115); Osmolality Calculated 291 mOsm/kg (285-295); Potassium 4.4 mmol/L (3.5-5.1); Sodium 140 mmol/L (136-145); Total Bilirubin 0.4 mg/dL (0.15-1.2); Total Protein 6.6 g/dL (6.6-8.7)
[2023-07-09 11:51] LABS: Iron 83 ug/dL (37-145); Percent Saturation 25.8 % (20-50); Total Iron Binding Capacity 321 mcg/dl; Unsaturated Iron Binding 238 ug/dL (112-347)
== END 2023-07-11 23:59 | disposition home or self-care (01) ==
PROVIDERS: Internal Medicine Medical Oncology; Nurse Practitioner Family; PCP Internal Medicine; Visit Provider Radiology Radiation Oncology
DX: C20 Malignant neoplasm of rectum (principal); Z53.9 Procedure and treatment not carried out, unspecified reason; N28.89 Other specified disorders of kidney and ureter; Z79.899 Other long term (current) drug therapy
CPT/HCPCS: 36415; 71250; 74176; 80053; 82378; 83540; 83550; 85025; 96367; 96368; 96413; 96415; 96416; 96523; 99213; 99214; J0640; J1100; J2469; J7060; J9190; J9263; Q9967

== ENCOUNTER → 2023-07-15 11:25 | Day surgery (SDC) | payer MEDICARE, MEDICAID, SELFPAY ==
--- NOTE | 2023-07-15 11:20 | XR_ITS ---
WS: [id number] PORTABLE CHEST HISTORY: Post PICC insertion COMPARISON: 07/15/2023 Interval placement of a right-sided PICC line. PICC line in good position terminating near the caval atrial junction. Lungs are clear and well expanded. No pleural effusion or pneumothorax. Cardiac size: Normal. Mediastinum/Aorta: Mild atherosclerosis aorta. No osseous abnormality seen. IMPRESSION: Satisfactory placement of right-sided PICC line.
--- NOTE | 2023-07-15 12:10 | PC.NURSE ---
Cancer treatment center called this vascular access nurse due to pt current PICC line having 5 cm catheter exposed. This nurse suggested CXR to verify placement. CXR ordered per Dr. Sahu with tip noted just barely in SVC per radiologist. Dr. Sahu ordered current left sided PICC to be removed and new PICC placed. Risks and benefits discussed with patient and informed consent obtained for new PICC line. PICC to left arm removed. Pressure held until hemostasis obtained. Vaseline based gauze applied over site with 2x2 gauze covering and secured with TSM. Pt instructed to leave in place for 24 hours. Right arm assessed for new PICC placement. Right basilic vein measured 6.0 mm, straight, and apparent best choice for placement. Using sterile technique and MST, right basilic vein accessed x 1 stick. Mid-arm circumference measured 10 cm from right AC 36 cm. Trimmed cath 39 cm with 2 cm external length noted. CXR shows tip in SVC, Cavoatrial junction, in good position for use per radiologist. Line secured with stat-lock. Insertion site covered with Biopatch and TSM. Pt scheduled with [facility] tomorrow for dressing change and treatment.
== END ==
PROVIDERS: PCP Internal Medicine; Visit Provider Internal Medicine Medical Oncology
DX: Z45.2 Encounter for adjustment and management of vascular access device (principal)
CPT/HCPCS: 36573; 71045

== ENCOUNTER 2023-08-07 14:00 | Oncology outpatient (recurring) (ONCR) | payer MEDICARE, MEDICAID, SELFPAY ==
[2023-07-15 08:21] LABS: Eosinophils # 0.1 10^3/uL (0.0-0.8); Eosinophils % 2.6 %; Lymphocytes % 26.4 %; Mean Corpuscular HGB Conc 32.2 g/dL (30-55); Mean Corpuscular Hemoglobin 30.8 pg (27-33); Mean Corpuscular Volume 95.9 fl (85-98); Mean Platelet Volume 9.4 fL (7.4-10.4); Monocytes # 0.6 10^3/uL (0.2-0.9); Monocytes % 14.6 %; Neutrophils # 2.08 10^3/uL (1.8-7.7); Neutrophils % 54.4 %; Nucleated Red Blood Cells % 0 %; Platelet Count 136 10^3/cmm (157-399); Red Blood Count 3.86 10^6/uL (3.85-5.65); Red Cell Distribution Width 16.4 % (12.1-15.1); White Blood Count 3.83 10^3/uL (3.29-11.43)
[2023-07-15] MEDS: alteplase 1 mg/mL SDV 2 mL 4 MG INTRACATH (08:38)
[2023-07-15 09:04] LABS: Alanine Aminotransferase 20 U/L (0-33); Albumin Level 3.7 g/dL (3.5-5.2); Alkaline Phosphatase 71 U/L (35-105); Anion Gap 11.3 (5-19); Aspartate Amino Transferase 20 U/L (0-32); Blood Urea Nitrogen 16 mg/dL (8-23); Calcium 8.6 mg/dL (8.5-10.5); Carbon Dioxide 27 mmol/L (22-29); Chloride 104 mmol/L (98-107); Globulin 2.6 g/dL (1.3-4.6); Glomerular Filtration Rate 71.5 mL/min (90-130); Glucose 86 mg/dL (65-115); Osmolality Calculated 286 mOsm/kg (285-295); Potassium 4.3 mmol/L (3.5-5.1); Sodium 138 mmol/L (136-145); Total Bilirubin 0.4 mg/dL (0.15-1.2); Total Protein 6.3 g/dL (6.6-8.7)
--- NOTE | 2023-07-15 09:24 | XRR_ITS ---
PROCEDURE INFORMATION: Exam: XR Chest Exam date and time: 07/15/2023 9:51 AM Age: 67 years old Clinical indication: Device placement; Picc; Additional info: Occluded picc line TECHNIQUE: Imaging protocol: Radiologic exam of the chest. Views: 2 views. COMPARISON: CT chest abdpel [id number] 06/27/2023 4:41 PM FINDINGS: Tubes, catheters and devices: A PICC line enters from the left and just reaches the SVC near the junction of the left subclavian vein and SVC. Lungs: Unremarkable. No consolidation. Pleural spaces: Unremarkable. No pleural effusion. No pneumothorax. Heart/Mediastinum: Unremarkable. No cardiomegaly. Bones/joints: Unremarkable. XR/XR chest 2V* [id number] IMPRESSION: No acute findings.
--- NOTE | 2023-07-15 12:29 | PC.NURSE ---
pt picc not responding to cathflo, xray ordered, sent to GI lab for replacement.
[2023-07-16] MEDS: dextrose 5% 250 ML 75 ML IV (08:47)
[2023-07-16] MEDS: palonosetron 0.25 mg/5 mL SDV IVP (08:51)
[2023-07-16 08:56] VITALS: BP 124/79; PULSE 68
[2023-07-16] MEDS: OXALIPLATIN IV (09:26)
[2023-07-16] MEDS: leucovorin 800 MG in dextrose 5% 250 ML 62.5 MG IV (09:26)
[2023-07-16] MEDS: DEXTROSE 5% IV (09:26)
[2023-07-16 14:05] VITALS: BP 162/63; PULSE 78; TEMP 36.2; O2SAT 97
[2023-07-16] MEDS: FLUOROURACIL IV (14:08)
[2023-07-16] MEDS: ELASTOMERIC PUMP PUMP IV (14:08)
[2023-07-16] MEDS: SODIUM CHLORIDE IV (14:08)
[2023-07-18 11:45] VITALS: BP 140/78; PULSE 80; RESP 18; TEMP 36.6; O2SAT 98
[2023-07-22 11:05] LABS: Basophils % 0.5 %; Eosinophils # 0.1 10^3/uL (0.0-0.8); Eosinophils % 2.8 %; Hematocrit 36.5 % (36-47); Lymphocytes # 1.4 10^3/uL (0.8-4.8); Lymphocytes % 32.2 %; Mean Corpuscular HGB Conc 32.1 g/dL (30-55); Mean Corpuscular Hemoglobin 30.6 pg (27-33); Mean Corpuscular Volume 95.5 fl (85-98); Mean Platelet Volume 9.9 fL (7.4-10.4); Monocytes # 0.5 10^3/uL (0.2-0.9); Monocytes % 10.6 %; Neutrophils # 2.27 10^3/uL (1.8-7.7); Neutrophils % 53.4 %; Nucleated Red Blood Cells % 0 %; Platelet Count 139 10^3/cmm (157-399); Red Blood Count 3.82 10^6/uL (3.85-5.65); Red Cell Distribution Width 15.8 % (12.1-15.1); White Blood Count 4.25 10^3/uL (3.29-11.43)
[2023-07-29 10:29] LABS: Basophils % 0.4 %; Eosinophils # 0.1 10^3/uL (0.0-0.8); Eosinophils % 3.1 %; Hematocrit 35.8 % (36-47); Lymphocytes # 1.2 10^3/uL (0.8-4.8); Lymphocytes % 26.4 %; Mean Corpuscular HGB Conc 32.4 g/dL (30-55); Mean Corpuscular Hemoglobin 31.4 pg (27-33); Mean Platelet Volume 9.8 fL (7.4-10.4); Monocytes # 0.6 10^3/uL (0.2-0.9); Monocytes % 14.3 %; Neutrophils # 2.47 10^3/uL (1.8-7.7); Neutrophils % 55.4 %; Nucleated Red Blood Cells % 0 %; Platelet Count 137 10^3/cmm (157-399); Red Blood Count 3.69 10^6/uL (3.85-5.65); Red Cell Distribution Width 17.1 % (12.1-15.1); White Blood Count 4.47 10^3/uL (3.29-11.43)
[2023-08-05 08:26] LABS: Eosinophils # 0.1 10^3/uL (0.0-0.8); Hematocrit 39.2 % (36-47); Lymphocytes # 1.2 10^3/uL (0.8-4.8); Lymphocytes % 30.8 %; Mean Corpuscular HGB Conc 31.1 g/dL (30-55); Mean Corpuscular Hemoglobin 31.6 pg (27-33); Mean Corpuscular Volume 101.6 fl (85-98); Mean Platelet Volume 9.3 fL (7.4-10.4); Monocytes # 0.6 10^3/uL (0.2-0.9); Monocytes % 15.8 %; Neutrophils # 1.96 10^3/uL (1.8-7.7); Neutrophils % 49.1 %; Nucleated Red Blood Cells % 0 %; Platelet Count 158 10^3/cmm (157-399); Red Blood Count 3.86 10^6/uL (3.85-5.65); Red Cell Distribution Width 17.1 % (12.1-15.1); White Blood Count 3.99 10^3/uL (3.29-11.43)
[2023-08-05 08:47] LABS: Carcinoembryonic Antigen 6.7 ng/mL (0.0-4.7)
[2023-08-05 09:00] LABS: Alanine Aminotransferase 20 U/L (0-33); Albumin Level 3.7 g/dL (3.5-5.2); Alkaline Phosphatase 84 U/L (35-105); Anion Gap 12.2 (5-19); Aspartate Amino Transferase 23 U/L (0-32); Blood Urea Nitrogen 11 mg/dL (8-23); Calcium 8.8 mg/dL (8.5-10.5); Carbon Dioxide 24 mmol/L (22-29); Chloride 109 mmol/L (98-107); Glomerular Filtration Rate 83.5 mL/min (90-130); Glucose 91 mg/dL (65-115); Osmolality Calculated 291 mOsm/kg (285-295); Potassium 4.2 mmol/L (3.5-5.1); Sodium 141 mmol/L (136-145); Total Bilirubin 0.3 mg/dL (0.15-1.2); Total Protein 6.7 g/dL (6.6-8.7)
[2023-08-05] MEDS: palonosetron 0.25 mg/5 mL SDV IVP (09:59)
[2023-08-05] MEDS: dextrose 5% 250 ML 75 ML IV (09:59)
[2023-08-05] MEDS: DEXTROSE 5% IV (10:32)
[2023-08-05] MEDS: OXALIPLATIN IV (10:32)
[2023-08-05] MEDS: leucovorin 800 MG in dextrose 5% 250 ML 62.5 MG IV (10:33)
[2023-08-05 13:20] VITALS: BP 128/84; PULSE 76; RESP 16; TEMP 36.4; O2SAT 92
[2023-08-05] MEDS: FLUOROURACIL IV (13:20)
[2023-08-05] MEDS: SODIUM CHLORIDE IV (13:20)
[2023-08-05] MEDS: ELASTOMERIC PUMP PUMP IV (13:20)
[2023-08-07 13:54] VITALS: BP 130/73; PULSE 89; RESP 17; TEMP 36.3; O2SAT 93
== END 2023-08-11 23:59 | disposition home or self-care (01) ==
PROVIDERS: Internal Medicine Medical Oncology; PCP Internal Medicine; Visit Provider Radiology Radiation Oncology
DX: Z45.1 Encounter for adjustment and management of infusion pump (principal); Z53.9 Procedure and treatment not carried out, unspecified reason
CPT/HCPCS: 36415; 36573; 36592; 71045; 71046; 80053; 82378; 85025; 96367; 96368; 96374; 96375; 96413; 96415; 96416; 96523; 99214; J0640; J1100; J2469; J2997; J7060; J9190; J9263

== ENCOUNTER 2023-08-10 11:15 | Emergency (ER) | payer MEDICARE, MEDICAID, SELFPAY ==
[2023-08-10 11:37] VITALS: BP 132/87; PULSE 92; RESP 16; TEMP 36.5; O2SAT 98
--- NOTE | 2023-08-10 12:07 | PC.PHAR ---
PT STATES CURRENLY UNDER DR NARAYANAN' CARE, DOING CHEMOTHERAPY EVERY 3 WEEKS. 08/10/23
--- NOTE | 2023-08-10 12:23 | ED_ITS ---
HPI - Eye Problem General: Chief complaint: Eye Problems Stated complaint: eye pain Time Seen by Provider: 08/10/23 11:52 History of Present Illness: The patient presents with a chief complaint of right eye pain that started at 2 o'clock in the morning. She describes the pain as feeling like someone punched her in the eye. The patient also reports occasional scratchiness in the eye and excessive tearing when looking at the sun or a computer screen. She denies any itching or burning sensation in the eye. The patient has a history of glaucoma and cataracts, with a stent placed in the right eye for glaucoma and a lens implant in the left eye for cataracts. She is currently undergoing chemotherapy and has a PICC line in place. The patient is unsure if the eye pain is related to her restless sleep or if she accidentally hit herself in the face with the PICC line. The patient has been using glaucoma medication and is able to follow up with her special procedures technologist, Dr. Triplett, if needed. Associated symptoms: Denies fever(s) Review of Systems General: Reports: 10 or more systems reviewed and unremarkable except in HPI and below Const: Denies: fever(s) Card: Denies: palpitations or edema Resp: Denies: dyspnea Skin/Breast: Denies: rash PFSH ED PFSH: Medical History History of pulmonary embolism (01/2021) In association with COVID-19 virus infection Glaucoma Rectal cancer Tobacco dependency Hyperlipidemia Hypothyroidism Surgical History History of eye surgery (03/2023) Cataract excision and glaucoma surgery History of colonoscopy (01/31/23) History of cholecystectomy History of appendectomy History of hysterectomy History of tonsillectomy History of knee surgery Family History Other Clotting disorder Denies family history of ALS (amyotrophic lateral sclerosis) Social History Smoking and tobacco/nicotine status: current every day tobacco/nicotine user cigarettes Packs smoked per day: 0.5 Years cigarettes smoked: 49 Alcohol intake: never Physical Exam Const: COMMON NORMALS: no acute distress, patient oriented x3, healthy appearing, alert and well nourished HENMT: COMMON NORMALS: normocephalic HEAD & SCALP: normocephalic Eye: COMMON NORMALS: Equal, round and reactive pupils present, EOMs intact bilaterally and conjunctivae normal VISUAL ACUITY: Yes acuity normal CONJUNCTIVA: Yes conjunctivae normal SCLERA: scleral abnormal Laterality of scleral abnormality: positive right scleral injection and scleral tenderness CORNEA: Yes corneas normal and fluorescein used PUPIL: Yes Equal, round and reactive pupils present Neck/C-Spine: COMMON NORMALS: full ROM and supple Resp: COMMON NORMALS: normal respiratory effort, No retractions and clear to auscultation bilaterally AUSCULTATION: clear to auscultation bilaterally Cardio: COMMON NORMALS: regular rate, regular rhythm, No gallops present (Cardio) and No murmurs present (Cardio) RATE: regular rate RHYTHM: regular rhythm GI: COMMON NORMALS: Soft to palpation and non-tender PALPATION: Yes Soft to palpation Extremity: GENERAL: Yes normal exam except as noted Neuro: COMMON NORMALS: patient oriented x3 SENSORIUM/ORIENTATION: Yes alert Skin: COMMON NORMALS: no rashes or lesions noted GENERAL SKIN EXAM: no rashes or lesions noted Course Vital Signs: Vital signs: Vital Signs Temperature 97.7 F 08/10/23 11:37 Pulse Rate 92 08/10/23 11:37 Respiratory Rate 16 08/10/23 11:37 Blood Pressure 132/87 08/10/23 11:37 Pulse Oximetry 98 08/10/23 11:37 Oxygen Delivery Me thod Room Air 08/10/23 11:37 MDM - Eye Problem Medical Decision Making 67-year-old female with past medical history of glaucoma and cataracts presents emergency department for evaluation of a painful red right eye. Physical exam is normal with a ocular pressure of 13 mmHg, negative fluorescein stain, visual montague intact, and review of systems negative. Patient's history is concerning with some light sensitivity and discomfort. Case discussed with Dr. Triplett the ophthalmology who recommended erythromycin ointment and follow-up with him next week. Patient was also instructed that Dr. Triplett's cell phone was on her paperwork and she could call him tomorrow if the symptoms are worse and he would meet her at his clinic. Patient discharged in good conditions. Return precautions discussed. Differential Diagnosis Likely corneal abrasion, conjunctivitis, acute iritis, glaucoma and corneal ulcer No radiology studies performed this visit Discharge Plan Discharge Patient Disposition: Home Clinical Impression: Acute eye pain Condition: Stable Prescriptions: New erythromycin 5 mg/gram (0.5 %) ointment 1 applic ophthalmic (eye) BID Qty: 3.5 0RF No Action furosemide 20 mg tablet 20 mg PO DAILY PRN (Reason: swelling) Qty: 30 1RF magnesium hydroxide [Milk Of Magnesia Concentrated] 2,400 mg/10 mL suspension 5 ml PO DAILY PRN (Reason: Constipation) levothyroxine 75 mcg tablet 75 mcg PO DAILY timolol maleate 0.5 % drops 1 drp ophthalmic (eye) BID Rx Instructions: USE DIRECTED simvastatin 40 mg tablet 40 mg PO QPM prochlorperazine maleate 10 mg tablet 10 mg PO Q6H PRN (Reason: MILD NAUSEA) lorazepam 1 mg tablet See Rx Instructions .ROUTE .COMPLEX PRN (Reason: SEVERE NAUSEA) Rx Instructions: 1 mg orally ;TAKE to 1 TABLET BY MOUTH EVERY SIX hours as needed for SEVERE nausea Discharge Orders: Discharge ED (Routine); Ordered 08/10/23 Ordered By: Maximus Alvarez Referrals: Danielle Jacome MD [Primary Care Provider] - Discharge Diet: Usual diet Discharge Activity: Resume usual activity Patient Instructions: Opioid Safety, Pain Management Activity Restrictions/Additional Instructions: Follow-up with your special procedures technologist next week or sooner with pain. Return to the emergency department if unable to reach the special procedures technologist or start to notice decreased vision, fevers, or any other concerning symptoms. Coding Level of Care Code ED Maintenance Shop Technician for Christie Burton
[2023-08-10] MEDS: fluorescein 1 mg Strip EYE-RIGHT (12:37)
[2023-08-10] MEDS: eye irrigation 30 mL Btl EYE-RIGHT (12:38)
[2023-08-10 13:08] VITALS: BP 135/86; PULSE 95; RESP 16; TEMP 36.5; O2SAT 98
== END 2023-08-10 13:09 | disposition home or self-care (01) ==
PROVIDERS: Emergency Provider General Practice; PCP Internal Medicine
DX: H57.11 Ocular pain, right eye (principal); Z85.048 Personal history of other malignant neoplasm of rectum, rectosigmoid junction, and anus; E78.5 Hyperlipidemia, unspecified; F17.210 Nicotine dependence, cigarettes, uncomplicated
CPT/HCPCS: 99283

== ENCOUNTER 2023-09-04 09:43 | Oncology outpatient (recurring) (ONCR) | payer MEDICARE, MEDICAID, SELFPAY ==
[2023-08-12 10:12] LABS: Basophils # 0.1 10^3/uL (0.0-0.1); Eosinophils # 0.1 10^3/uL (0.0-0.8); Eosinophils % 2.6 %; Hematocrit 36.8 % (36-47); Lymphocytes # 1.7 10^3/uL (0.8-4.8); Lymphocytes % 34.5 %; Mean Corpuscular HGB Conc 32.3 g/dL (30-55); Mean Corpuscular Hemoglobin 31.6 pg (27-33); Mean Corpuscular Volume 97.9 fl (85-98); Mean Platelet Volume 9.4 fL (7.4-10.4); Monocytes # 0.6 10^3/uL (0.2-0.9); Monocytes % 11.6 %; Neutrophils % 49.9 %; Nucleated Red Blood Cells % 0 %; Platelet Count 146 10^3/cmm (157-399); Red Blood Count 3.76 10^6/uL (3.85-5.65); Red Cell Distribution Width 16.5 % (12.1-15.1); White Blood Count 5.01 10^3/uL (3.29-11.43)
[2023-08-26 11:00] LABS: Basophils % 0.7 %; Eosinophils # 0.2 10^3/uL (0.0-0.8); Eosinophils % 3.7 %; Hematocrit 39.2 % (36-47); Lymphocytes # 1.5 10^3/uL (0.8-4.8); Lymphocytes % 36.5 %; Mean Corpuscular HGB Conc 32.4 g/dL (30-55); Mean Corpuscular Hemoglobin 31.6 pg (27-33); Mean Corpuscular Volume 97.5 fl (85-98); Mean Platelet Volume 9.8 fL (7.4-10.4); Monocytes # 0.6 10^3/uL (0.2-0.9); Monocytes % 15.1 %; Neutrophils # 1.76 10^3/uL (1.8-7.7); Neutrophils % 43.5 %; Nucleated Red Blood Cells % 0 %; Platelet Count 157 10^3/cmm (157-399); Red Blood Count 4.02 10^6/uL (3.85-5.65); Red Cell Distribution Width 16.3 % (12.1-15.1); White Blood Count 4.05 10^3/uL (3.29-11.43)
[2023-08-26 11:26] LABS: Carcinoembryonic Antigen 6.9 ng/mL (0.0-4.7)
[2023-08-26 11:37] LABS: Alanine Aminotransferase 26 U/L (0-33); Albumin Level 3.7 g/dL (3.5-5.2); Alkaline Phosphatase 80 U/L (35-105); Anion Gap 14.8 (5-19); Aspartate Amino Transferase 27 U/L (0-32); Blood Urea Nitrogen 9 mg/dL (8-23); Calcium 8.6 mg/dL (8.5-10.5); Carbon Dioxide 23 mmol/L (22-29); Chloride 107 mmol/L (98-107); Globulin 3.2 g/dL (1.3-4.6); Glomerular Filtration Rate 83.5 mL/min (90-130); Glucose 90 mg/dL (65-115); Osmolality Calculated 290 mOsm/kg (285-295); Potassium 3.8 mmol/L (3.5-5.1); Sodium 141 mmol/L (136-145); Total Bilirubin 0.4 mg/dL (0.15-1.2); Total Protein 6.9 g/dL (6.6-8.7)
[2023-08-26] MEDS: dextrose 5% 250 ML 75 ML IV (12:08)
[2023-08-26] MEDS: palonosetron 0.25 mg/5 mL SDV IVP (12:08)
[2023-08-26] MEDS: OXALIPLATIN IV (13:06)
[2023-08-26] MEDS: DEXTROSE 5% IV (13:06)
[2023-08-26] MEDS: leucovorin 800 MG in dextrose 5% 250 ML 62.5 MG IV (13:07)
[2023-08-26 15:12] VITALS: BP 135/85; PULSE 70; RESP 16; TEMP 36.1; O2SAT 98
== END 2023-09-10 23:59 | disposition home or self-care (01) ==
PROVIDERS: Internal Medicine Medical Oncology; PCP Internal Medicine; Visit Provider Radiology Radiation Oncology
DX: Z53.9 Procedure and treatment not carried out, unspecified reason (principal); C20 Malignant neoplasm of rectum; Z45.1 Encounter for adjustment and management of infusion pump; Z51.11 Encounter for antineoplastic chemotherapy; N28.89 Other specified disorders of kidney and ureter; T82.898A Other specified complication of vascular prosthetic devices, implants and grafts, initial encounter; Y84.9 Medical procedure, unspecified as the cause of abnormal reaction of the patient, or of later complication, without mention of misadventure at the time of the procedure
CPT/HCPCS: 36592; 80053; 82378; 85025; 96367; 96368; 96374; 96375; 96413; 96417; 99214; J0640; J1100; J2469; J7060; J9263

== ENCOUNTER 2023-10-24 09:30 | Oncology outpatient (recurring) (ONCR) | payer MEDICARE, MEDICAID, SELFPAY ==
--- NOTE | 2023-10-21 08:30 | CT_ITS ---
WS: [id number] CT CHEST, ABDOMEN AND PELVIS WITH CONTRAST HISTORY: renal mass, rectal cancer TECHNIQUE: Contiguous 5 mm axial imaging performed through the chest, abdomen and pelvis with IV cont rast, oral contrast has been provided. Coronal and sagittal reformats chest. Coronal and sagittal ref ormats through the abdomen and pelvis. All CT scans at [facility] use at least one of these d ose optimization techniques: automated exposure control; mA and/or kV adjustment per patient size (in cludes targeted exams where dose is matched to clinical indication); or iterative reconstruction. CONTRAST: Omnipaque 350; 100 mL IV. DLP: 1169.25 mGy.cm COMPARISON: 06/27/2023, 02/21/[address]: No pulmonary mass or nodules. No pneumonia. Mild atherosclerosis aorta. Normal size pulmona ry artery. Heart is normal size. No pericardial or pleural effusions. No axillary adenopathy. Small h iatal hernia. Abdomen CT: Mild hepatic steatosis. No metastatic disease. Normal portal vein. Normal size spleen. No rmal pancreas. Prior cholecystectomy. Common bile duct is mildly prominent as on prior studies. No ad renal mass. Atherosclerosis aorta. No aneurysm. Circumaortic LEFT renal vein. No renal obstruction. Central RIGHT renal cyst 2.9 x 1.7 x 1.6 cm. Exophytic mass in the lower pole t he LEFT kidney is isodense to the adjacent parenchyma measuring 2.0 x 1.8 x 1.5 cm. This mass has bee n present since at least 02/21/2023 without increase in size. No new mass. Normal stomach. No small bowel obstruction. Diffuse moderate constipation. Prior appendectomy. Modera te diverticular burden distally. No mass. Pelvic CT: Prior hysterectomy. Urinary bladder is negative. No free fluid or adenopathy. Small benign -appearing inguinal lymph nodes. There is very mild rectal wall thickening which is stable over prior studies. Best seen on the sagittal reformat. No destructive bone lesions. CT/CT chest abdpel w/*[id number] IMPRESSION: 1. No evidence for metastatic lymphadenopathy within the chest, abdomen or pel vis. 2. No pulmonary nodules. 3. No metastatic disease in the liver or adrenal glands. 4. Stable enhancing exophytic mass lower pole LEFT kidney measuring 2.0 x 1.8 x 1.5 cm. Stable since at least 02/21/2023. 5. There is mild circumferential rectal wall thickening and enhancement. No di screte mass. 6. Prior appendectomy and cholecystectomy. 7. No ascites or adenopathy. 8. Moderate distal colonic diverticular disease without acute diverticulitis.
[2023-10-21 09:12] LABS: Blood Urea Nitrogen 10 mg/dL (8-23); Glomerular Filtration Rate 71.5 mL/min (90-130)
[2023-10-21] MEDS: iohexol 350 mg/mL 500 mL Btl (per mL) IV (09:14)
[2023-10-21] MEDS: iohexol 350 mg/mL 100 mL Btl PO (09:14)
[2023-10-24 09:06] VITALS: BP 140/91; PULSE 76; RESP 17; TEMP 36.6; O2SAT 94
[2023-10-24 09:14] VITALS: BP 140/69; PULSE 78; RESP 18; TEMP 36.6; O2SAT 94
[2023-10-24 09:28] LABS: Basophils % 0.7 %; Eosinophils # 0.2 10^3/uL (0.0-0.8); Eosinophils % 3.5 %; Hematocrit 40.7 % (36-47); Lymphocytes # 1.2 10^3/uL (0.8-4.8); Lymphocytes % 26.6 %; Mean Corpuscular HGB Conc 32.7 g/dL (30-55); Mean Corpuscular Hemoglobin 31.7 pg (27-33); Mean Corpuscular Volume 96.9 fl (85-98); Mean Platelet Volume 9.1 fL (7.4-10.4); Monocytes # 0.5 10^3/uL (0.2-0.9); Monocytes % 10.3 %; Neutrophils # 2.69 10^3/uL (1.8-7.7); Neutrophils % 58.7 %; Nucleated Red Blood Cells % 0 %; Platelet Count 172 10^3/cmm (157-399); Red Cell Distribution Width 13.7 % (12.1-15.1); White Blood Count 4.58 10^3/uL (3.29-11.43)
[2023-10-24 10:00] LABS: Carcinoembryonic Antigen 5.4 ng/mL (0.0-4.7)
[2023-10-24 10:11] LABS: Alanine Aminotransferase 14 U/L (0-33); Albumin Level 3.7 g/dL (3.5-5.2); Alkaline Phosphatase 83 U/L (35-105); Anion Gap 14.9 (5-19); Aspartate Amino Transferase 17 U/L (0-32); Blood Urea Nitrogen 9 mg/dL (8-23); Calcium 8.5 mg/dL (8.5-10.5); Carbon Dioxide 25 mmol/L (22-29); Chloride 105 mmol/L (98-107); Creatinine Clr Calc Pharmacy 77.3781; Glomerular Filtration Rate 71.5 mL/min (90-130); Glucose 91 mg/dL (65-115); Osmolality Calculated 290 mOsm/kg (285-295); Potassium 3.9 mmol/L (3.5-5.1); Sodium 141 mmol/L (136-145); Total Bilirubin 0.4 mg/dL (0.15-1.2); Total Protein 6.7 g/dL (6.6-8.7)
== END 2023-11-10 23:59 | disposition home or self-care (01) ==
PROVIDERS: Internal Medicine Hematology & Oncology; PCP Internal Medicine; Visit Provider Radiology Radiation Oncology
DX: Z53.9 Procedure and treatment not carried out, unspecified reason (principal); C20 Malignant neoplasm of rectum; F17.210 Nicotine dependence, cigarettes, uncomplicated; G62.0 Drug-induced polyneuropathy; T45.1X5A Adverse effect of antineoplastic and immunosuppressive drugs, initial encounter; N28.89 Other specified disorders of kidney and ureter
CPT/HCPCS: 36415; 71260; 74177; 80053; 82378; 82565; 84520; 85025; 99214; Q9967

== ENCOUNTER 2024-02-20 12:46 | Inpatient (IN) | payer MEDICARE, MEDICAID, SELFPAY ==
[2024-02-20] VITALS (7 sets, daily range): BP systolic 134–164; BP diastolic 72–83; PULSE 65–75; RESP 17–20; TEMP 36.7–37.7; O2SAT 95–96; BMI 36.8
--- NOTE | 2024-02-20 13:47 | ED_ITS ---
HPI - Headache 2 General: Chief Complaint: Headache Stated Complaint: sinus problems, swollen face Time Seen by Provider: 02/20/24 13:36 History of Present Illness: 68-year-old female presents emergency ro om with facial swelling and blistering in the right upper portion of her face she was seen yesterday by ophthalmology they were concerned about zoster. They also stated that the doctor told them that she needed a CT of her face for her sinuses. She was able to open eyes yesterday that the swelling and blistering have increased significantly now she is not able to open the eye at all. She has had some congestion and nausea as well. She was seen earlier this week evidently started on steroids for an allergic reaction. She is also given doxycycline for a sinus infection she was started on acyclovir Augmentin and topical erythromycin yesterday. Associated symptoms: Reports fever(s) and rash; Deny chest pain Related Data Home Medications Medication Instructions Recorded Confirmed levothyroxine 75 mcg tablet 75 mcg PO DAILY 01/26/21 02/20/24 timolol maleate 0.5 % eye drops 1 drp ophthalmic (eye) BID 01/26/21 02/20/24 simvastatin 40 mg tablet 40 mg PO QPM 05/15/23 02/20/24 magnesium hydroxide 2,400 mg/10 mL 5 ml PO DAILY PRN Constipation 06/17/23 02/20/24 oral suspension (Milk Of Magnesia Concentrated) [id number] 3.5 1 drp ophthalmic (eye) Q12H 08/26/23 02/20/24 mg/mL-10,000 unit/mL-0.1% eye drops acyclovir 800 mg tablet 800 mg PO .5 TIMES DAILY 02/20/24 02/20/24 albuterol sulfate 2.5 mg/3 mL 1 mg inhalation Q6H 02/20/24 02/20/24 (0.083 %) solution for nebulization amoxicillin 875 mg-potassium 1 tab PO BID 02/20/24 02/20/24 clavulanate 125 mg tablet erythromycin 5 mg/gram (0.5 %) eye 1 applic ophthalmic (eye) TID 02/20/24 02/20/24 ointment (3.5 gram tube) Allergies Allergy/AdvReac Type Severity Reaction Status Date / Time morphine Allergy Intermediate Unknown Verified 10/24/23 10:15 tuberculin,PPD,multi-puncture Allergy Intermediate ADR-Itching Verified 10/24/23 10:15 adhesive tape Allergy Mild ALGY-Rash Verified 10/24/23 10:15 chlorhexidine Allergy Mild ADR-Itching Verified 10/24/23 10:15 [From ChloraPrep Clear] heparin Allergy Mild ADR-Nausea Verified 10/24/23 10:15 ibuprofen Allergy Mild ADR-Vomitin Verified 10/24/23 10:15 g isopropyl alcohol Allergy Mild ADR-Itching Verified 10/24/23 10:15 [From ChloraPrep Clear] latex Allergy Mild ADR-Itching Verified 10/24/23 10:15 antihistamines Allergy Severe ALGY-Hives Uncoded 10/24/23 10:15 Bio-Gel Allergy Intermediate ADR-Swelling Uncoded 10/24/23 10:15 of the Eye Review of Systems 2 Const: Reports: fever(s); Denies: chills Eyes: Reports: change in vision, blurry vision, photophobia, eye discomfort, eye discharge and eye redness Card: Denies: chest pain Resp: Denies: dyspnea GI: Denies: abdominal pain : Denies: dysuria, urinary frequency or urinary urgency Musc: Denies: neck pain or back pain Skin/Breast: Reports: rash PFSH ED 2 PFSH: Medical History History of pulmonary embolism (01/2021) In association with COVID-19 virus infection Glaucoma Rectal cancer Tobacco dependency Hyperlipidemia Hypothyroidism Surgical History History of eye surgery (03/2023) Cataract excision and glaucoma surgery History of colonoscopy (01/31/23) History of cholecystectomy History of appendectomy History of hysterectomy History of tonsillectomy History of knee surgery Family History Other Clotting disorder Denies family history of ALS (amyotrophic lateral sclerosis) Social History Smoking and tobacco/nicotine status: current every day tobacco/nicotine user cigarettes Packs smoked per day: 0.5 Years cigarettes smoked: 49 Alcohol intake: never Physical Exam 2 Const: GENERAL APPEARANCE: cooperative ORIENTATION/CONSCIOUSNESS: Yes awake, Yes oriented to person, Yes oriented to place and Yes oriented to time HENMT: COMMON NORMALS: normocephalic, atraumatic and hearing grossly normal bilaterally HEAD & SCALP: normocephalic and atraumatic Resp: COMMON NORMALS: normal respiratory effort, No retractions, No use of accessory muscles and clear to auscultation bilaterally AUSCULTATION: clear to auscultation bilaterally Cardio: COMMON NORMALS: regular rate, regular rhythm and No murmurs present (Cardio) RATE: regular rate RHYTHM: regular rhythm GI: COMMON NORMALS: Soft to palpation and No hepatosplenomegaly present A USCULTATION: Yes normoactive bowel sounds PALPATION: Yes Soft to palpation, No Tenderness to palpation present (GI), No Guarding due to palpation present (GI) and Yes No hepatosplenomegaly present Extremity: COMMON NORMALS: normal to inspection, capillary refill normal, no clubbing, cyanosis or edema, no calf tenderness and no pedal edema Neuro: SENSORIUM/ORIENTATION: Yes oriented to person, Yes oriented to place and Yes oriented to time Skin: OTHER: Vesicular rash in the V1 distribution on the left cranial nerves. Unable to open the eye unable to visualize the globe of the eye. Course 2 Vital Signs: Vital signs: Vital Signs Temperature 99.1 F 02/21/24 04:00 Pulse Rate 83 02/21/24 04:00 Respiratory Rate 18 02/21/24 04:00 Blood Pressure 144/67 02/21/24 04:00 Pulse Oximetry 95 02/21/24 04:00 Oxygen Delivery Me thod Room Air 02/21/24 04:00 MDM - Headache Medical Decision Making Patient presents with obvious zoster with significant swelling of the eye. Called and contacted the ophthalmology clinic she was seen yesterday and they were concerned about a possible periorbital cellulitis. At this point she is definitely manifested as a zoster. CT shows soft tissue swelling described as a left parotitis left facial cellulitis periorbital cellulitis. Hospitalist has been consulted if [facility] seen and patient initiated vancomycin. Discussed results with the patient orders written ophthalmology will see the patient later this afternoon. Medical Records I reviewed the patient's medical records. Lab Data I reviewed the patient's lab results. 02/20/24 13:58 02/20/24 13:[address] 02/20/24 14:10 IMPRESSION: 1. Bilateral pre and periorbital cellulitis, left more severe than right. 2. Left facial cellulitis. 3. Left parotitis. Laboratory Results WBC 5.76 10^3/uL (3.29-11.43) 02/20/24 13:58 RBC 4.48 10^6/uL (3.85-5.65) 02/20/24 13:58 Hgb 13.70 g/dL (11.27-16.99) 02/20/24 13:58 Hct 40.7 % (36-47) 02/20/24 13:58 MCV 90.8 fl (85-98) 02/20/24 13:58 MCH 30.6 pg (27-33) 02/20/24 13:58 MCHC 33.7 g/dL (30-55) 02/20/24 13:58 RDW 13.1 % (12.1-15.1) 02/20/24 13:58 Plt Count 119 10^3/cmm (157-399) L 02/20/24 13:58 MPV 9.4 fL (7.4-10.4) 02/20/24 13:58 Neut % (Auto) 67.3 % 02/20/24 13:58 Lymph % (Auto) 21.0 % 02/20/24 13:58 [place] % (Auto) 10.9 % 02/20/24 13:58 Eos % (Auto) 0.2 % 02/20/24 13:58 Baso % (Auto) 0.3 % 02/20/24 13:58 Neut # (Auto) 3.87 10^3/uL (1.8-7.7) 02/20/24 13:58 Lymph # (Auto) 1.2 10^3/uL (0.8-4.8) 02/20/24 13:58 [place] # (Auto) 0.6 10^3/uL (0.2-0.9) 02/20/24 13:58 Eos # (Auto) 0.0 10^3/uL (0.0-0.8) 02/20/24 13:58 Baso # (Auto) 0.0 10^3/uL (0.0-0.1) 02/20/24 13:58 Nucleated RBC % (auto) 0 % 02/20/24 13:58 Nucleated RBCs # 0.0 /100WBC 02/20/24 13:58 Sodium 135 mmol/L (136-145) L 02/20/24 13:58 Potassium 3.7 mmol/L (3.5-5.1) 02/20/24 13:58 Chloride 100 mmol/L (98-107) 02/20/24 13:58 Carbon Dioxide 25 mmol/L (22-29) 02/20/24 13:58 Anion Gap 13.7 (5-19) 02/20/24 13:58 BUN 16 mg/dL (8-23) 02/20/24 13:58 Creatinine 0.7 mg/dL (0.5-0.9) 02/20/24 13:58 GFR Calculation 83.2 mL/min (90-130) L 02/20/24 13:58 Glucose 119 mg/dL (65-115) H 02/20/24 13:58 Calculated Osmolality 282 mOsm/kg (285-295) L 02/20/24 13:58 Lactic Acid 1.5 mmol/L (0.5-2.2) 02/20/24 13:58 Calcium 8.1 mg/dL (8.5-10.5) L 02/20/24 13:58 Total Bilirubin 0.5 mg/dL (0.15-1.2) 02/20/24 13:58 AST 34 U/L (0-32) H 02/20/24 13:58 ALT 32 U/L (0-33) 02/20/24 13:58 Alkaline Phosphatase 86 U/L (35-105) 02/20/24 13:58 Total Protein 6.8 g/dL (6.6-8.7) 02/20/24 13:58 Albumin 4.0 g/dL (3.5-5.2) 02/20/24 13:58 Globulin 2.8 g/dL (1.3-4.6) 02/20/24 13:58 All radiology interpretation(s) finalized by discharge Discharge Plan Discharge Patient Disposition: Admitted As Inpatient Admit Provider: Timmy Dillard Clinical Impression: Herpes zoster ophthalmicus of left eye, Periorbital cellulitis Condition: Stable Coding Level of Care Code ED Tram Driver for Christie Burton
[2024-02-20 14:09] LABS: Basophils % 0.3 %; Eosinophils % 0.2 %; Hematocrit 40.7 % (36-47); Lymphocytes # 1.2 10^3/uL (0.8-4.8); Mean Corpuscular HGB Conc 33.7 g/dL (30-55); Mean Corpuscular Hemoglobin 30.6 pg (27-33); Mean Corpuscular Volume 90.8 fl (85-98); Mean Platelet Volume 9.4 fL (7.4-10.4); Monocytes # 0.6 10^3/uL (0.2-0.9); Monocytes % 10.9 %; Neutrophils # 3.87 10^3/uL (1.8-7.7); Neutrophils % 67.3 %; Nucleated Red Blood Cells % 0 %; Platelet Count 119 10^3/cmm (157-399); Red Blood Count 4.48 10^6/uL (3.85-5.65); Red Cell Distribution Width 13.1 % (12.1-15.1); White Blood Count 5.76 10^3/uL (3.29-11.43)
--- NOTE | 2024-02-20 14:10 | CTR_ITS ---
PROCEDURE INFORMATION: Exam: CT Maxillofacial With Contrast Exam date and time: 02/20/2024 4:33 PM Age: 68 years old Clinical indication: Visual changes or disturbances; Discomfort; Additional info: Orbital cellulitis TECHNIQUE: Imaging protocol: Computed tomography of the face with contrast. Radiation optimization: All CT scans at this facility use at least one of these dose optimization techniques: automated exposure control; mA and/or kV adjustment per patient size (includes targeted exams where dose is matched to clinical indication); or iterative reconstruction. Contrast material: OMNI 350; Contrast volume: 100 ml; Contrast route: INTRAVENOUS (IV); COMPARISON: CT head wo con* [id number] 01/26/2021 10:19 AM RADIATION DOSE METRICS: Total DLP (mGy-cm): 641 FINDINGS: Brain: Calcified plaque is present within the intracranial vasculature. Paranasal sinuses: No air-fluid levels. Orbital cavities: See Soft tissues finding. Teeth: Patient is edentulous. Salivary glands: Left parotid gland is edematous with stranding in the adjacent fat planes. There are subcentimeter left parotid lymph nodes. Lymph nodes: There are shotty left submandibular lymph nodes. Bones: No acute fracture. Soft tissues: There is bilateral pre and periorbital cellulitis. Postseptal soft tissue changes are not visualized. Left facial cellulitis. CT/CT facial bones w con [id number] IMPRESSION: 1. Bilateral pre and periorbital cellulitis, left more severe than right. 2. Left facial cellulitis. 3. Left parotitis.
[2024-02-20 14:23] LABS: Lactic Sepsis W/Reflex 1.5 mmol/L (0.5-2.2)
[2024-02-20 14:24] LABS: Alanine Aminotransferase 32 U/L (0-33); Alkaline Phosphatase 86 U/L (35-105); Anion Gap 13.7 (5-19); Aspartate Amino Transferase 34 U/L (0-32); Blood Urea Nitrogen 16 mg/dL (8-23); Calcium 8.1 mg/dL (8.5-10.5); Carbon Dioxide 25 mmol/L (22-29); Chloride 100 mmol/L (98-107); Creatinine Clr Calc Pharmacy 76.3181; Globulin 2.8 g/dL (1.3-4.6); Glomerular Filtration Rate 83.2 mL/min (90-130); Glucose 119 mg/dL (65-115); Osmolality Calculated 282 mOsm/kg (285-295); Potassium 3.7 mmol/L (3.5-5.1); Sodium 135 mmol/L (136-145); Total Bilirubin 0.5 mg/dL (0.15-1.2); Total Protein 6.8 g/dL (6.6-8.7)
--- NOTE | 2024-02-20 14:31 | P.HP_ITS ---
Providers/Chief Complaint 2 Primary Care Provider: Danielle Jacome MD Chief Complaint: sinus problems, swollen face History of Present Illness Angely Potts is a 68 year old female who presented to the hospital for worsening of her left scalp area and left eye rash. Her rash started on Saturday which has gotten worse in last few days, she has seen Dr. Triplett as well who gave her erythromycin topical antibiotics as well along antiviral p.o. regimen. Patient was asked to come to the ED for further swelling and get CT scan of her left eye to rule out orbital cellulitis. In the ER she has been diagnosed with shingles which is involving V1 territory complaining of headache, no signs of fever, no signs of meningitis or encephalitis. Her eye is swollen to the point we are not able to open it completely to examine her conjunctival or scleral area. Patient was told about all the potential complications from VZV dissemination. She is also aware that we do not have ID in this hospital, she is okay with initiation of treatment getting CT scan and getting admitted in the hospital Dr. Triplett has been notified who will see her after his clinic hours I did go over indication for steroids along acyclovir with Dr. Triplett Sr. who was in agreement. Patient is immunocompromise, last chemotherapy session was few months ago Review of Systems 2 Eyes: Reports: eye discomfort, eye discharge and eye redness ENMT: Reports: ear or mastoid pain; Denies: throat pain Card: Denies: chest pain Resp: Denies: dyspnea GI: Denies: abdominal pain : Denies: flank pain Medications/Allergies Home Medications Medication Instructions Recorded Confirmed Last Taken Type levothyroxine 75 mcg tablet 75 mcg PO DAILY 01/26/21 02/20/24 02/20/24 History timolol maleate 0.5 % eye drops 1 drp ophthalmic (eye) BID 01/26/21 02/20/24 02/20/24 History simvastatin 40 mg tablet 40 mg PO QPM 05/15/23 02/20/24 02/19/24 History magnesium hydroxide 2,400 mg/10 mL 5 ml PO DAILY PRN Constipation 06/17/23 02/20/24 07/15/23 History oral suspension (Milk Of Magnesia Concentrated) typjjlct-ykyeowmmb-ncaihhjr 3.5 1 drp ophthalmic (eye) Q12H 08/26/23 02/20/24 02/20/24 History mg/mL-10,000 unit/mL-0.1% eye drops acyclovir 800 mg tablet 800 mg PO .5 TIMES DAILY 02/20/24 02/20/24 02/20/24 History albuterol sulfate 2.5 mg/3 mL 1 mg inhalation Q6H 02/20/24 02/20/24 Unknown History (0.083 %) solution for nebulization amoxicillin 875 mg-potassium 1 tab PO BID 02/20/24 02/20/24 02/20/24 History clavulanate 125 mg tablet erythromycin 5 mg/gram (0.5 %) eye 1 applic ophthalmic (eye) TID 02/20/24 02/20/24 02/20/24 History ointment (3.5 gram tube) Allergies Allergy/AdvReac Type Severity Reaction Status Date / Time morphine Allergy Intermediate Unknown Verified 10/24/23 10:15 tuberculin,PPD,multi-puncture Allergy Intermediate ADR-Itching Verified 10/24/23 10:15 adhesive tape Allergy Mild ALGY-Rash Verified 10/24/23 10:15 chlorhexidine Allergy Mild ADR-Itching Verified 10/24/23 10:15 [From ChloraPrep Clear] heparin Allergy Mild ADR-Nausea Verified 10/24/23 10:15 ibuprofen Allergy Mild ADR-Vomitin Verified 10/24/23 10:15 g isopropyl alcohol Allergy Mild ADR-Itching Verified 10/24/23 10:15 [From ChloraPrep Clear] latex Allergy Mild ADR-Itching Verified 10/24/23 10:15 antihistamines Allergy Severe ALGY-Hives Uncoded 10/24/23 10:15 Bio-Gel Allergy Intermediate ADR-Swelling Uncoded 10/24/23 10:15 of the Eye PFSH Acute 2 PFSH: Medical History History of pulmonary embolism (01/2021) In association with COVID-19 virus infection Glaucoma Rectal cancer Tobacco dependency Hyperlipidemia Hypothyroidism Surgical History History of eye surgery (03/2023) Cataract excision and glaucoma surgery History of colonoscopy (01/31/23) History of cholecystectomy History of appendectomy History of hysterectomy History of tonsillectomy History of knee surgery Family History Other Clotting disorder Denies family history of ALS (amyotrophic lateral sclerosis) Social History Smoking and tobacco/nicotine status: current every day tobacco/nicotine user cigarettes Packs smoked per day: 0.5 Years cigarettes smoked: 49 Alcohol intake: never Vitals/I&O/Wt Last Vital Signs Temp 98.1 F 02/20/24 13:00 Pulse 65 02/20/24 13:00 Resp 17 02/20/24 13:00 BP 134/81 02/20/24 13:00 Pulse Ox 96 02/20/24 13:00 O2 Del Method Room Air 02/20/24 13:00 Weight last 48 hrs Weight 97.522 kg Physical Exam 2 Narrative: Vesicular rash associated with the B1 territory involving scalp area, left scalp, extending towards her eye causing edema of her eyelids No rash noted around her left ear canal, complaining of pain around left scalp area which has active vesicle without crusting I was not able to examine her sclera or conjunctiva because of eyelid swelling There is papular rash around her neck and right ear as well Patient is complaining of headache Currently on room air Hypertensive GCS 15 nonfocal neuroexam No sign of meningitis Pleasant cooperative Nontender distended abdomen Data 02/20/24 13:58 02/20/24 13:58 Micro: Microbiology 02/20/24 14:15 Blood Culture - Preliminary Blood SPECIMEN COLLECTED A&P Assessment and plan (1) Herpes zoster ophthalmicus of left eye: (2) Rectal cancer: Plan Herpes ophthalmicus Symptoms started on Wednesday 02/14 Start acyclovir Add steroids Would use ketorolac for anti-inflammatory effect as well Will follow-up with Dr. Triplett's recommendations Will request CT scan of face for orbital cellulitis evaluation I will start patient on broad-spectrum antibiotics along IV fluids and acyclovir Patient has been told about potential complications related to VZV infection including but not limited to keratitis, vision loss, herpes and encephalitis, she is agreeable for the initiation of treatment in this hospital Cardiac diet Currently on room air DVT prophylaxis Lovenox Will also add topical lidocaine for her left scalp vesicle rash pain For neuropathic pain she may need duloxetine along Toradol Attestations 2 Medical Necessity Statement*: More than 2 midnights anticipated Diagnoses Herpes zoster ophthalmicus of left eye B02.30 Rectal cancer C20
[2024-02-20] MEDS: acyclovir 1,000 MG in sodium chloride 0.9% 250 ML 270 MG IV (14:37)
[2024-02-20 14:40] LABS: Slide Review Slide Review Perform
[2024-02-20] MEDS: methylPREDNISolone sod succ 40 mg/mL INJ IVP (16:27)
[2024-02-20] MEDS: iohexol 350 mg/mL 500 mL Btl (per mL) IV (16:38)
--- NOTE | 2024-02-20 16:58 | PC.NURSE ---
ER contacted Dr. German Triplett about pt being transferred to [facility]
--- NOTE | 2024-02-20 17:06 | PHA.VACGOAL ---
Vancomycin Goal - Goal Vancomycin Goal:: 10-15 mg/L Vancomycin Indication:: SSTI - Therapy Current therapy:: Pip/Tazo Day of therpy:: Day []of [] . Actual body weight (kg): 215 lb - Data Labs: WBC 5.76 10^3/uL (3.29-11.43) 02/20/24 13:58 RBC 4.48 10^6/uL (3.85-5.65) 02/20/24 13:58 Hgb 13.70 g/dL (11.27-16.99) 02/20/24 13:58 Hct 40.7 % (36-47) 02/20/24 13:58 MCV 90.8 fl (85-98) 02/20/24 13:58 MCH 30.6 pg (27-33) 02/20/24 13:58 MCHC 33.7 g/dL (30-55) 02/20/24 13:58 RDW 13.1 % (12.1-15.1) 02/20/24 13:58 Sodium 135 mmol/L (136-145) L 02/20/24 13:58 Potassium 3.7 mmol/L (3.5-5.1) 02/20/24 13:58 Chloride 100 mmol/L (98-107) 02/20/24 13:58 Carbon Dioxide 25 mmol/L (22-29) 02/20/24 13:58 Anion Gap 13.7 (5-19) 02/20/24 13:58 BUN 16 mg/dL (8-23) 02/20/24 13:58 Creatinine 0.7 mg/dL (0.5-0.9) 02/20/24 13:58 GFR Calculation 83.2 mL/min (90-130) L 02/20/24 13:58 Treatment plan:: new consult Regimen:: 1500mg q12h
[2024-02-20] MEDS: vancomycin 1,500 MG/300 ML PIGGYBACK 200 MG IV (17:45)
[2024-02-20] MEDS: sodium chloride 0.9% 1,000 ML 75 ML IV (17:45)
[2024-02-20] MEDS: piperacillin-tazobactam 3.375 GM in sodium chloride 0.9% (plus) 50 ML IV (20:57)
[2024-02-20] MEDS: acyclovir 1,000 MG in sodium chloride 0.9% (100 ml) 100 ML 110 MG IV (23:19)
[2024-02-21] VITALS (8 sets, daily range): BP systolic 126–157; BP diastolic 67–88; PULSE 64–93; RESP 16–18; TEMP 36.4–37.9; O2SAT 95–97
[2024-02-21] MEDS: methylPREDNISolone sod succ 40 mg/mL INJ IVP ×2 (03:00→16:55)
[2024-02-21] MEDS: vancomycin 1,500 MG/300 ML PIGGYBACK 200 MG IV ×2 (04:16→17:00)
[2024-02-21 06:03] LABS: Basophils % 0.2 %; Hematocrit 39.3 % (36-47); Lymphocytes # 1.3 10^3/uL (0.8-4.8); Lymphocytes % 20.1 %; Mean Corpuscular HGB Conc 33.6 g/dL (30-55); Mean Corpuscular Hemoglobin 30.8 pg (27-33); Mean Corpuscular Volume 91.6 fl (85-98); Mean Platelet Volume 9.7 fL (7.4-10.4); Monocytes # 0.4 10^3/uL (0.2-0.9); Monocytes % 5.8 %; Neutrophils # 4.82 10^3/uL (1.8-7.7); Neutrophils % 73.1 %; Nucleated Red Blood Cells % 0 %; Platelet Count 130 10^3/cmm (157-399); Red Blood Count 4.29 10^6/uL (3.85-5.65); White Blood Count 6.58 10^3/uL (3.29-11.43)
[2024-02-21 06:16] LABS: Slide Review Slide Review Perform
[2024-02-21 06:18] LABS: Anion Gap 14.4 (5-19); Blood Urea Nitrogen 14 mg/dL (8-23); Calcium 7.9 mg/dL (8.5-10.5); Carbon Dioxide 22 mmol/L (22-29); Chloride 104 mmol/L (98-107); Creatinine Clr Calc Pharmacy 76.3568; Glomerular Filtration Rate 83.2 mL/min (90-130); Glucose 104 mg/dL (65-115); Magnesium 2.1 mg/dL (1.7-2.3); Osmolality Calculated 285 mOsm/kg (285-295); Potassium 3.4 mmol/L (3.5-5.1); Sodium 137 mmol/L (136-145)
[2024-02-21] MEDS: acyclovir 1,000 MG in sodium chloride 0.9% (100 ml) 100 ML 110 MG IV ×3 (07:22→23:12)
[2024-02-21] MEDS: piperacillin-tazobactam 3.375 GM in sodium chloride 0.9% (plus) 50 ML IV ×2 (07:23→16:56)
[2024-02-21] MEDS: duloxetine 30 mg Capsule PO (09:09)
[2024-02-21] MEDS: erythromycin Op Oint 1 gm 1 APPLIC EYE-LEFT ×3 (09:09→20:58)
[2024-02-21] MEDS: lidocaine 4% cream 5 gm 1 APPLIC TOPICAL ×2 (09:09→17:07)
[2024-02-21] MEDS: levothyroxine 75 mcg Tablet PO (09:09)
--- NOTE | 2024-02-21 10:25 | PC.CHAP ---
Pastoral Care Encounter/Spiritual Assessment Type of Contact [] Declined underwriting operations manager visit [] Patient/Family/Request visit [] Outpatient visit [] Follow-up visit [] Physician referral [] Code/Alert [x] Routine visit [] Staff referral [] Actively dying [] Patient sleeping [] Family support [] [] Out of room [] Palliative care [] [] Receiving care in room [] Pre-surgical visit [] Trauma [] Long length of stay [] ICU visit [x] Other:Stop Quarantine Relational/Emotional Strength [] Patient feels connected with others/family/visitors/staff [] Distress [] Loneliness/isolation [] Abandonment Spirituality of Patient [] Person of Margarita [] Attends Anabaptist of their Margarita [] Believes in Prayer [] Reads Bible or Orthodox materials [] There are Spiritual issues to be addressed Dedicated Driver Interventions [] Prayer [] Active listening [] Non-anxious presence [] Spiritual/emotional support [] Crisis/trauma care [] Spiritual counseling [] Bereavement support [] Provided bereavement packet [] Provided Bible/devotional materials [] Provided toy/stuffed animal, coloring book to patient or family member [] Provided Communion [] Anointing/[place] [] Salvation [] Completed spiritual assessment [] Other: Impact on Illness or Injury [] Angry [] Fearful [] Anxious [] Often cries [] Exhaustion [] Unable to work [] Unable to attend restorationist [] Unable to walk/stand [] Unable to read [] Unable to drive [] Unable to eat/drink [] Unable to sleep [] Unable to be with family [] Patient intubated [] Other: Summary Time spent with patient
--- NOTE | 2024-02-21 12:19 | P.PN_ITS ---
Subjective 2 Subjective: Patient's pain tolerance has improved since yesterday She was a bit anxious to smoke however I did tell her that we are not able to facilitate her request and she can get nicotine patch which she was not interested in for now Patient is stating that she feels slightly better in terms of her burning sensation around her scalp and eye area She is still not able to open her eyes completely Vitals/I&O/Wt Last Vital Signs Temp 98.7 F 02/21/24 08:00 Pulse 93 02/21/24 09:28 Resp 16 02/21/24 09:28 BP 142/76 02/21/24 08:00 Pulse Ox 95 02/21/24 09:28 O2 Del Method Room Air 02/21/24 09:28 02/20/24 02/21/24 02/21/24 22:59 06:59 14:59 Intake Total 930 / 930 410 / 1340 1140 / 1140 Output Total 200 / 200 800 / 1000 Balance 730 / 730 -390 / 340 1140 / 1140 Weight last 48 hrs Weight 97.613 kg Weight 97.522 kg Weight 97.522 kg Physical Exam 2 Narrative: Right eyelid swelling Vesicular rash involving left scalp area forehead and, left eye, she is still not able to open her eyes No vascular rash noted in her ear canal No signs of meningitis Pleasant cooperative Family at the bedside Nonfocal neuroexam GCS 15 S1, S2 On room air Data 02/21/24 05:35 02/21/24 05:35 Micro: Microbiology 02/20/24 14:38 Blood Culture - Preliminary Blood SPECIMEN COLLECTED 02/20/24 14:15 Blood Culture - Preliminary Blood SPECIMEN COLLECTED A&P Assessment and plan (1) Herpes zoster ophthalmicus of left eye: (2) Rectal cancer: Plan Herpes ophthalmicus Rash started 02/14 Patient currently on broad-spectrum antibiotics for pre and periorbital cellulitis No significant pain on eye movement, her pain at this point is basically related to vesicular rash I have allowed her to use cool compressions Continue acyclovir along steroids She probably will need 7 days of IV acyclovir course during hospitalization I spoke with Dr. Triplett twice, also notified him about the CT scan Dr. Triplett stated that if she is not able to open her eyes he will not be able to completely examine her eye at this point DVT prophylaxis added Patient has Toradol as anti-inflammatory fact and opioids as analgesic Monitor kidney function Continue fluid hydration during acyclovir infusion Attestations 2 Medical Necessity Statement*: Continue medical management Diagnoses Herpes zoster ophthalmicus of left eye B02.30 Rectal cancer C20
[2024-02-21] MEDS: sodium chloride 0.9% 1,000 ML 75 ML IV (14:38)
[2024-02-22] MEDS: piperacillin-tazobactam 3.375 GM in sodium chloride 0.9% (plus) 50 ML IV ×4 (00:26→23:46)
[2024-02-22] MEDS: methylPREDNISolone sod succ 40 mg/mL INJ IVP ×2 (03:17→15:36)
[2024-02-22 04:00] VITALS: BP 148/67; PULSE 85; RESP 17; TEMP 36.7; O2SAT 93
[2024-02-22 04:25] LABS: Basophils % 0.2 %; Lymphocytes # 1.8 10^3/uL (0.8-4.8); Lymphocytes % 28.6 %; Mean Corpuscular HGB Conc 34.1 g/dL (30-55); Mean Corpuscular Hemoglobin 30.7 pg (27-33); Mean Platelet Volume 9.3 fL (7.4-10.4); Monocytes # 0.4 10^3/uL (0.2-0.9); Monocytes % 6.9 %; Neutrophils % 63.6 %; Nucleated Red Blood Cells % 0 %; Platelet Count 142 10^3/cmm (157-399); Red Blood Count 4.11 10^6/uL (3.85-5.65); White Blood Count 6.12 10^3/uL (3.29-11.43)
[2024-02-22 04:44] LABS: Anion Gap 12.3 (5-19); Blood Urea Nitrogen 17 mg/dL (8-23); Calcium 7.9 mg/dL (8.5-10.5); Carbon Dioxide 22 mmol/L (22-29); Chloride 108 mmol/L (98-107); Creatinine Clr Calc Pharmacy 76.3568; Glomerular Filtration Rate 83.2 mL/min (90-130); Glucose 114 mg/dL (65-115); Osmolality Calculated 290 mOsm/kg (285-295); Potassium 3.3 mmol/L (3.5-5.1); Sodium 139 mmol/L (136-145)
[2024-02-22 04:45] LABS: Vancomycin Trough 19.3 ug/mL (10-15)
[2024-02-22 04:48] LABS: Slide Review Slide Review Perform
[2024-02-22] MEDS: vancomycin 1,500 MG/300 ML PIGGYBACK 200 MG IV (04:56)
[2024-02-22 08:00] VITALS: BP 146/82; PULSE 85; RESP 18; TEMP 36.4; O2SAT 96
[2024-02-22] MEDS: acyclovir 1,000 MG in sodium chloride 0.9% (100 ml) 100 ML 110 MG IV ×2 (08:56→20:47)
[2024-02-22] MEDS: levothyroxine 75 mcg Tablet PO (08:56)
[2024-02-22] MEDS: erythromycin Op Oint 1 gm 1 APPLIC EYE-LEFT ×3 (09:00→20:47)
--- NOTE | 2024-02-22 09:15 | P.PN_ITS ---
Subjective 2 Subjective: No overnight events Low-grade fever noted Swelling of forehead and left eye slightly better than yesterday Right eye swelling has slightly progressed Vitals/I&O/Wt Last Vital Signs Temp 97.6 F 02/22/24 08:00 Pulse 85 02/22/24 08:00 Resp 18 02/22/24 08:00 BP 146/82 02/22/24 08:00 Pulse Ox 96 02/22/24 08:00 O2 Del Method Room Air 02/22/24 08:00 02/21/24 02/22/24 02/22/24 22:59 06:59 14:59 Intake Total 1190 / 2845 1288.75 / 4133.75 300 / 300 Output Total 600 / 600 600 / 1200 Balance 590 / 2245 688.75 / 2933.75 300 / 300 Weight last 48 hrs Weight 97.795 kg Weight 97.613 kg Weight 97.522 kg Weight 97.522 kg Physical Exam 2 Narrative: No signs of encephalitis or meningitis GCS 15 Swelling of forehead improving Crusting or vesicles noted She is still not able to open her left eye Right eye swelling slightly more today as compared to yesterday I do not see any sign of shingles or new rash on right eye Abdomen soft S1, S2 Currently on room air Data 02/22/24 04:17 02/22/24 04:17 Micro: Microbiology 02/20/24 14:38 Blood Culture - Preliminary Blood NEGATIVE TO DATE 02/20/24 14:15 Blood Culture - Preliminary Blood NEGATIVE TO DATE A&P Assessment and plan (1) Herpes zoster ophthalmicus of left eye: (2) Rectal cancer: Plan Herpes ophthalmicus Crusting noted of vesicular rash Right eye still not able to open Swelling of forehead improving Continue steroids antibiotics and antiviral To prevent kidney injury with acyclovir continue IV fluids which we can run during acyclovir infusion DVT prophylaxis on board Full code No signs of meningoencephalitis Continue cardiac diet Attestations 2 Medical Necessity Statement*: Patient will need to stay until Saturday next week Diagnoses Herpes zoster ophthalmicus of left eye B02.30 Rectal cancer C20
[2024-02-22 09:45] VITALS: PULSE 80; RESP 18; O2SAT 96
[2024-02-22 12:00] VITALS: BP 179/85; PULSE 67; RESP 17; TEMP 36.6; O2SAT 97
[2024-02-22 16:00] VITALS: BP 166/89; PULSE 61; RESP 18; TEMP 36.6; O2SAT 97
[2024-02-22] MEDS: vancomycin 1,250 MG/250 ML PIGGYBACK 166.67 MG IV (16:51)
[2024-02-22] MEDS: lidocaine 4% cream 5 gm 1 APPLIC TOPICAL (16:52)
[2024-02-22 19:53] VITALS: BP 153/91; PULSE 71; RESP 17; TEMP 36.6; O2SAT 96
[2024-02-23] VITALS (8 sets, daily range): BP systolic 138–174; BP diastolic 64–80; PULSE 60–77; RESP 15–18; TEMP 36.4–36.8; O2SAT 96–98
[2024-02-23] MEDS: methylPREDNISolone sod succ 40 mg/mL INJ IVP ×2 (03:34→17:06)
[2024-02-23] MEDS: acyclovir 1,000 MG in sodium chloride 0.9% (100 ml) 100 ML 110 MG IV ×3 (04:20→21:14)
[2024-02-23] MEDS: vancomycin 1,250 MG/250 ML PIGGYBACK 166 MG IV ×2 (05:38→17:07)
[2024-02-23 07:04] LABS: Basophils % 0.2 %; Hematocrit 36.4 % (36-47); Lymphocytes # 1.4 10^3/uL (0.8-4.8); Lymphocytes % 23.4 %; Mean Corpuscular Hemoglobin 30.3 pg (27-33); Mean Corpuscular Volume 91.9 fl (85-98); Mean Platelet Volume 9.2 fL (7.4-10.4); Monocytes # 0.3 10^3/uL (0.2-0.9); Monocytes % 4.8 %; Neutrophils # 4.31 10^3/uL (1.8-7.7); Neutrophils % 70.8 %; Nucleated Red Blood Cells % 0 %; Platelet Count 151 10^3/cmm (157-399); Red Blood Count 3.96 10^6/uL (3.85-5.65); Red Cell Distribution Width 13.1 % (12.1-15.1); White Blood Count 6.08 10^3/uL (3.29-11.43)
[2024-02-23 07:30] LABS: Slide Review Slide Review Perform
[2024-02-23] MEDS: erythromycin Op Oint 1 gm 1 APPLIC EYE-LEFT ×3 (08:27→21:15)
[2024-02-23] MEDS: piperacillin-tazobactam 3.375 GM in sodium chloride 0.9% (plus) 50 ML IV ×2 (08:27→17:07)
[2024-02-23] MEDS: lidocaine 4% cream 5 gm 1 APPLIC TOPICAL ×2 (08:27→17:08)
[2024-02-23] MEDS: levothyroxine 75 mcg Tablet PO (08:28)
[2024-02-23] MEDS: ipratropium-albuterol 3 mL Neb INHALATION (10:03)
[2024-02-23] MEDS: sodium chloride 0.9% 1,000 ML 75 ML IV (12:43)
--- NOTE | 2024-02-23 13:34 | P.PN_ITS ---
Subjective 2 Subjective: Swelling improved significantly Right eye swelling improving as well Patient was upset about her diet order we have changed to regular She was asking about her statin as well Vitals/I&O/Wt Last Vital Signs Temp 98.2 F 02/23/24 12:00 Pulse 77 02/23/24 12:00 Resp 17 02/23/24 12:00 BP 167/79 02/23/24 12:00 Pulse Ox 98 02/23/24 12:00 O2 Del Method Room Air 02/23/24 12:00 02/22/24 02/23/24 02/23/24 22:59 06:59 14:59 Intake Total 420 / 1370 170 / 1540 300 / 300 Output Total 300 / 300 Balance 120 / 1070 170 / 1240 300 / 300 Weight last 48 hrs Weight 100.386 kg Weight 97.795 kg Physical Exam 2 Narrative: Patient is sitting in a chair Vesicles are showing signs of crusting Scabs noted on forehead No signs of meningitis Awake and alert Pleasant cooperative Currently on room air Right upper eyelid swelling improving Eyelid swelling on left side improving as well significant swelling improvement of forehead Data 02/23/24 06:44 02/22/24 04:17 A&P Assessment and plan (1) Periorbital cellulitis: (2) Herpes zoster ophthalmicus of left eye: (3) Hyperlipidemia: Plan Continue acyclovir and antibiotics for next 2 days at least There is significant improvement in swelling and rash she is showing signs of improvement as well She is on a regular diet today Resumed her simvastatin Attestations 2 Medical Necessity Statement*: Likely discharge on Saturday if remains stable Diagnoses Periorbital cellulitis L03.213 Herpes zoster ophthalmicus of left eye B02.30 Hyperlipidemia E78.5
[2024-02-23] MEDS: atorvastatin 40 mg Tablet PO (17:06)
[2024-02-24] MEDS: piperacillin-tazobactam 3.375 GM in sodium chloride 0.9% (plus) 50 ML IV ×3 (00:18→17:55)
[2024-02-24] MEDS: sodium chloride 0.9% 1,000 ML 75 ML IV (03:50)
[2024-02-24] MEDS: acyclovir 1,000 MG in sodium chloride 0.9% (100 ml) 100 ML 110 MG IV ×2 (03:51→13:50)
[2024-02-24] MEDS: methylPREDNISolone sod succ 40 mg/mL INJ IVP (03:51)
[2024-02-24 04:00] VITALS: BP 167/77; PULSE 81; RESP 17; TEMP 36.8; O2SAT 97
[2024-02-24 04:42] LABS: Basophils % 0.1 %; Hematocrit 35.1 % (36-47); Lymphocytes # 1.8 10^3/uL (0.8-4.8); Lymphocytes % 23.5 %; Mean Corpuscular Hemoglobin 30.3 pg (27-33); Mean Corpuscular Volume 91.6 fl (85-98); Mean Platelet Volume 9.2 fL (7.4-10.4); Monocytes # 0.5 10^3/uL (0.2-0.9); Neutrophils # 5.23 10^3/uL (1.8-7.7); Neutrophils % 69.3 %; Nucleated Red Blood Cells % 0 %; Platelet Count 152 10^3/cmm (157-399); Red Blood Count 3.83 10^6/uL (3.85-5.65); Red Cell Distribution Width 13.2 % (12.1-15.1); White Blood Count 7.54 10^3/uL (3.29-11.43)
[2024-02-24 05:03] LABS: Vancomycin Trough 19.8 ug/mL (10-15)
[2024-02-24 05:04] LABS: Anion Gap 12.3 (5-19); Blood Urea Nitrogen 18 mg/dL (8-23); Calcium 7.4 mg/dL (8.5-10.5); Carbon Dioxide 22 mmol/L (22-29); Chloride 111 mmol/L (98-107); Creatinine Clr Calc Pharmacy 79.8605; Glomerular Filtration Rate 83.2 mL/min (90-130); Glucose 113 mg/dL (65-115); Osmolality Calculated 297 mOsm/kg (285-295); Potassium 3.3 mmol/L (3.5-5.1); Sodium 142 mmol/L (136-145)
[2024-02-24] MEDS: vancomycin 1,250 MG/250 ML PIGGYBACK 166 MG IV (05:29)
--- NOTE | 2024-02-24 05:35 | PC.NURSE ---
vanc trough 19.8
[2024-02-24] MEDS: levothyroxine 75 mcg Tablet PO (09:17)
[2024-02-24] MEDS: erythromycin Op Oint 1 gm 1 APPLIC EYE-LEFT ×3 (09:18→21:56)
[2024-02-24] MEDS: lidocaine 4% cream 5 gm 1 APPLIC TOPICAL ×2 (09:18→17:55)
--- NOTE | 2024-02-24 10:46 | P.PN_ITS ---
Subjective 2 Subjective: Left eye swelling improving, there is significant pruritus swelling as well Crusting of vesicles noted as well Patient is able to move her eyelid but not completely able to open her eyes Change IV fluids to oral hydration Vitals/I&O/Wt Last Vital Signs Temp 98.3 F 02/24/24 04:00 Pulse 81 02/24/24 04:00 Resp 17 02/24/24 04:00 BP 167/77 02/24/24 04:00 Pulse Ox 97 02/24/24 04:00 O2 Del Method Room Air 02/24/24 04:00 02/23/24 02/24/24 02/24/24 22:59 06:59 14:59 Intake Total 420 / 1680 1380 / 3060 451.25 / 451.25 Balance 420 / 1680 1380 / 3060 451.25 / 451.25 Weight last 48 hrs Weight 105.857 kg Weight 100.386 kg Physical Exam 2 Narrative: Vesicles with crusting Swelling improving Pleasant cough No sign of meningitis Nonfocal neuroexam Sitting in a chair Abdomen soft Nonfocal neuroexam Currently room air Daughter is at the bedside low Data 02/24/24 04:35 02/24/24 04:35 A&P Assessment and plan (1) Periorbital cellulitis: (2) Herpes zoster ophthalmicus of left eye: (3) Hyperlipidemia: Plan Change IV fluid oral hydration Patient doing remarkably well Significant improvement noted Will like to keep patient here until she is able to open her left eye Swelling erythema improved Continue antimicrobials Attestations 2 Medical Necessity Statement*: Likely discharge in next 24 to 48 hours Diagnoses Periorbital cellulitis L03.213 Herpes zoster ophthalmicus of left eye B02.30 Hyperlipidemia E78.5
[2024-02-24 11:53] VITALS: BP 176/93; PULSE 77; RESP 19; TEMP 36.6; O2SAT 95
[2024-02-24 12:00] VITALS: BP 167/80; PULSE 66; RESP 19; TEMP 36.4; O2SAT 96
--- NOTE | 2024-02-24 15:58 | PC.SOCIAL ---
IMM Update pg 2 of IMM updated and reviewed w/ patient. Copy provided and copy dated, initialed and placed in chart.
[2024-02-24] MEDS: atorvastatin 40 mg Tablet PO (17:55)
[2024-02-24 20:00] VITALS: BP 168/87; PULSE 72; RESP 17; TEMP 36.7; O2SAT 96
[2024-02-24] MEDS: ipratropium-albuterol 3 mL Neb INHALATION (20:47)
[2024-02-24 20:48] VITALS: PULSE 72; RESP 16; O2SAT 97
[2024-02-24 20:53] VITALS: PULSE 74
[2024-02-24] MEDS: acyclovir 1,000 MG in sodium chloride 0.9% 250 ML 110 MG IV (21:56)
[2024-02-24] MEDS: vancomycin 1,250 MG/250 ML PIGGYBACK 166.67 MG IV (23:57)
[2024-02-25] VITALS: BP 154/76; PULSE 66; RESP 17; TEMP 36.4; O2SAT 97
[2024-02-25] MEDS: piperacillin-tazobactam 3.375 GM in sodium chloride 0.9% (plus) 50 ML IV ×2 (00:21→08:38)
[2024-02-25 04:00] VITALS: BP 150/66; PULSE 65; RESP 18; TEMP 36.3; O2SAT 95
[2024-02-25] MEDS: acyclovir 1,000 MG in sodium chloride 0.9% 250 ML 110 MG IV (05:22)
[2024-02-25 07:36] VITALS: BP 151/76; PULSE 90; RESP 17; TEMP 36.8; O2SAT 98
[2024-02-25] MEDS: levothyroxine 75 mcg Tablet PO (08:38)
[2024-02-25] MEDS: lidocaine 4% cream 5 gm 1 APPLIC TOPICAL (08:39)
[2024-02-25 10:51] VITALS: PULSE 81; RESP 15; O2SAT 96
[2024-02-25 11:39] VITALS: BP 163/80; PULSE 81; RESP 16; TEMP 36.8; O2SAT 96
[2024-02-25] MEDS: acetaminophen 500 mg Tablet PO (12:10)
--- NOTE | 2024-02-25 12:22 | P.PN_ITS ---
Subjective 2 Subjective: Patient is able to open her left eye with mild assistance, I was not able to completely examine corneal and conjunctival area She is endorsing feeling better I reached out to Dr. Triplett who is in procedures today, left a message Vitals/I&O/Wt Last Vital Signs Temp 98.3 F 02/25/24 11:39 Pulse 81 02/25/24 11:39 Resp 16 02/25/24 11:39 BP 163/80 02/25/24 11:39 Pulse Ox 96 02/25/24 11:39 O2 Del Method Room Air 02/25/24 11:39 02/24/24 02/25/24 02/25/24 22:59 06:59 14:59 Intake Total 530 / 1990.25 690 / 2681.25 510 / 510 Balance 530 / 25 690 / 2681.25 510 / 510 Weight last 48 hrs Weight 98.702 kg Weight 105.857 kg Physical Exam 2 Narrative: Awake and alert Sitting at the bedside Currently on room air Pleasant cooperative Significant improvement of eye swelling Able to open her left eye with some assistance I was not able to clearly see her corneal and conjunctival area S1, S2 Hypertensive Data 02/24/24 04:35 02/24/24 04:35 A&P Assessment and plan (1) Periorbital cellulitis: (2) Herpes zoster ophthalmicus of left eye: (3) Hyperlipidemia: Plan She is able to open her left eye to some extent I will discuss this case with Dr. Triplett from a time If ophthalmology is okay to follow-up with her outpatient I may be able discharge later today versus tomorrow Continue acyclovir discontinue vancomycin and Zosyn Attestations 2 Medical Necessity Statement*: Likely discharge later today versus tomorrow Diagnoses Periorbital cellulitis L03.213 Herpes zoster ophthalmicus of left eye B02.30 Hyperlipidemia E78.5
--- NOTE | 2024-02-25 12:30 | PM.DCS ---
Discharge Providers Date of Admission: 02/20/24 16:32 Date of Discharge: February 25, 2024 Attending Provider at Admission: Timmy Dillard MD Attending Provider at Discharge: Timmy Dillard MD Primary Care Provider: Danielle Jacome MD Diagnoses at Discharge Discharge Diagnosis (1) Periorbital cellulitis: Status: Acute (2) Herpes zoster ophthalmicus of left eye: Status: Acute (3) Hyperlipidemia: Status: Acute Reason for Visit Reason for Visit: sinus problems, swollen face Hospital Course Hospital Course 68-year female who present to the hospital for shingles involving V1 dermatome, she was admitted CT scan was done which showed pre and periorbital cellulitis she was put on vancomycin Zosyn and IV acyclovir and IV fluids, her rash started getting crusted after 5 days of IV antimicrobials, she remained hemodynamically stable, her progress was shared with Dr. Triplett meat service team member who is planning to see her 02/25 in the clinic for retinal exam. He is okay with acyclovir 5 times daily for next 10 days along with erythromycin we will add duloxetine and oxycodone for pain management.. Physical Exam Narrative: Shingles rash with crusting Erythema around conjunctival area On room air Nonfocal neuroexam GCS 15 Discharge Data Studies Completed and Pending Completed Studies During Hospitalization Category Date Time Status CT facial bones w con [id number] Stat Cat Scan 02/20/24 14:10 Completed Pending at discharge Category Date Time Status Blood Culture Stat Lab 02/20/24 14:38 Results Vancomycin Trough Timed Lab 02/26/24 10:00 Ordered Radiology Impressions Face CT 02/20/24 14:10 IMPRESSION: 1. Bilateral pre and periorbital cellulitis, left more severe than right. 2. Left facial cellulitis. 3. Left parotitis. Laboratory Results WBC 7.54 10^3/uL (3.29-11.43) 02/24/24 04:35 RBC 3.83 10^6/uL (3.85-5.65) L 02/24/24 04:35 Hgb 11.60 g/dL (11.27-16.99) 02/24/24 04:35 Hct 35.1 % (36-47) L 02/24/24 04:35 MCV 91.6 fl (85-98) 02/24/24 04:35 MCH 30.3 pg (27-33) 02/24/24 04:35 MCHC 33.0 g/dL (30-55) 02/24/24 04:35 RDW 13.2 % (12.1-15.1) 02/24/24 04:35 Plt Count 152 10^3/cmm (157-399) L 02/24/24 04:35 MPV 9.2 fL (7.4-10.4) 02/24/24 04:35 Neut % (Auto) 69.3 % 02/24/24 04:35 Lymph % (Auto) 23.5 % 02/24/24 04:35 [facility] % (Auto) 6.0 % 02/24/24 04:35 Eos % (Auto) 0.0 % 02/24/24 04:35 Baso % (Auto) 0.1 % 02/24/24 04:35 Neut # (Auto) 5.23 10^3/uL (1.8-7.7) 02/24/24 04:35 Lymph # (Auto) 1.8 10^3/uL (0.8-4.8) 02/24/24 04:35 [facility] # (Auto) 0.5 10^3/uL (0.2-0.9) 02/24/24 04:35 Eos # (Auto) 0.0 10^3/uL (0.0-0.8) 02/24/24 04:35 Baso # (Auto) 0.0 10^3/uL (0.0-0.1) 02/24/24 04:35 Nucleated RBC % (auto) 0 % 02/24/24 04:35 Nucleated RBCs # 0.0 /100WBC 02/24/24 04:35 Sodium 142 mmol/L (136-145) 02/24/24 04:35 Potassium 3.3 mmol/L (3.5-5.1) L 02/24/24 04:35 Chloride 111 mmol/L (98-107) H 02/24/24 04:35 Carbon Dioxide 22 mmol/L (22-29) 02/24/24 04:35 Anion Gap 12.3 (5-19) 02/24/24 04:35 BUN 18 mg/dL (8-23) 02/24/24 04:35 Creatinine 0.7 mg/dL (0.5-0.9) 02/24/24 04:35 GFR Calculation 83.2 mL/min (90-130) L 02/24/24 04:35 Glucose 113 mg/dL (65-115) 02/24/24 04:35 Calculated Osmolality 297 mOsm/kg (285-295) H 02/24/24 04:35 Lactic Acid 1.5 mmol/L (0.5-2.2) 02/20/24 13:58 Calcium 7.4 mg/dL (8.5-10.5) L 02/24/24 04:35 Magnesium 2.1 mg/dL (1.7-2.3) 02/21/24 05:35 Total Bilirubin 0.5 mg/dL (0.15-1.2) 02/20/24 13:58 AST 34 U/L (0-32) H 02/20/24 13:58 ALT 32 U/L (0-33) 02/20/24 13:58 Alkaline Phosphatase 86 U/L (35-105) 02/20/24 13:58 Total Protein 6.8 g/dL (6.6-8.7) 02/20/24 13:58 Albumin 4.0 g/dL (3.5-5.2) 02/20/24 13:58 Globulin 2.8 g/dL (1.3-4.6) 02/20/24 13:58 Vancomycin Trough 19.8 ug/mL (10-15) H 02/24/24 04:35 Vitals Last Vital Signs Temp 98.3 F 02/25/24 11:39 Pulse 81 02/25/24 11:39 Resp 16 02/25/24 11:39 BP 163/80 02/25/24 11:39 Pulse Ox 96 02/25/24 11:39 O2 Del Method Room Air 02/25/24 11:39 Discharge Plan Discharge Patient Disposition: Home Condition: Stable Prescriptions: New oxycodone 5 mg tablet 5 mg PO BID PRN (Reason: pain) Qty: 10 0RF duloxetine 30 mg Capsule,Delayed Release(Dr/Ec) 30 mg PO DAILY Qty: 10 0RF Continued neomycin-polymyxin B-dexameth 3.5mg/mL-10,000 unit/mL-0.1 % drops,suspension 1 drp ophthalmic (eye) Q12H magnesium hydroxide [Milk Of Magnesia Concentrated] 2,400 mg/10 mL suspension 5 ml PO DAILY PRN (Reason: Constipation) levothyroxine 75 mcg tablet 75 mcg PO DAILY timolol maleate 0.5 % drops 1 drp ophthalmic (eye) BID Rx Instructions: USE DIRECTED simvastatin 40 mg tablet 40 mg PO QPM albuterol sulfate 2.5 mg /3 mL (0.083 %) solution for nebulization 1 mg inhalation Q6H erythromycin 5 mg/gram (0.5 %) ointment 1 applic ophthalmic (eye) TID acyclovir 800 mg tablet 800 mg PO .5 TIMES DAILY 10 Days Qty: 50 0RF Discontinued amoxicillin-pot clavulanate 875-125 mg tablet 1 tab PO BID Discharge Orders: Discharge Order (Routine); Ordered 02/25/24 Ordered By: Timmy Dillard Referrals: Danielle Jaocme MD [Primary Care Provider] - Patient Instructions: Opioid Safety Discharge Attestations Time Spent in Discharge Care*: greater than 30 min Quality Metrics Clinical Quality Measures [ No reported AMI, CVA or VTE this stay] Coding Level of Care Code Acute Code for Chg Fwd Diagnoses Periorbital cellulitis L03.213 Herpes zoster ophthalmicus of left eye B02.30 Hyperlipidemia E78.5
[2024-02-25 14:39] VITALS: BP 163/80; PULSE 81; RESP 16; TEMP 36.8; O2SAT 96
== END 2024-02-25 14:15 | disposition home or self-care (01) | DRG 125 ==
LOC: ER 14:39 → MEDSURG 16:31
PROVIDERS: Admitting Provider Internal Medicine; Emergency Provider Family Medicine; PCP Internal Medicine; Visit Provider Internal Medicine
DX: B02.30 Zoster ocular disease, unspecified (principal); C20 Malignant neoplasm of rectum; D84.821 Immunodeficiency due to drugs; E78.5 Hyperlipidemia, unspecified; E03.9 Hypothyroidism, unspecified; H40.9 Unspecified glaucoma; F17.210 Nicotine dependence, cigarettes, uncomplicated; Z86.711 Personal history of pulmonary embolism
CPT/HCPCS: 36415; 70487; 80048; 80053; 80202; 83605; 83735; 85025; 87040; 94640; 96365; 99285; J0133; J2543; J2919; J3370; J7030; J7050